=== PATIENT | female | born 1950 | race Caucasian/White ===

== ENCOUNTER → 2016-09-09 | Outpatient (CLI) | payer MEDICARE ==
[~2016-09-09] MED LIST: AMBIEN5 MG PO; DARVOCET N 1001 TAB PO; FLEXERIL5 MG PO; LITHIUM CARBON300 MG PO; VOLTAREN50 M1 PO; ZYPREXA20 MG PO
== END | disposition home or self-care (01) ==
LOC: US 17:39
DX: M48.06 Spinal stenosis, lumbar region (principal); M79.605 Pain in left leg; M79.604 Pain in right leg

== ENCOUNTER 2016-12-04 11:51 | Inpatient (IN) | payer MEDICARE ==
[~2016-12-04] VITALS: Ht 165.1 cm; Wt 75.4 kg
--- NOTE | ~2016-12-04 | DS ---
[place], [place] DISCHARGE SUMMARY NAME: SCOTT MARC UNIT #: [id number] ROOM: 311 DOCTOR: SO MENDOSA BIRTHDATE: [birth year] DOS: 12/15/2016 CHIEF COMPLAINT: "I am going home." HISTORY OF PRESENT ILLNESS: She is a 65-year-old white female who came into the emergency room from home, brought in by her family due to worsening psychosis. She has a longstanding history of schizophrenia and had not been taking her medications appropriately because she believed that it was causing her to have a dry mouth. When she came into the emergency room, she was grossly psychotic, saying that she had microchips in her head and that these microchips were for tracking her and to help her hear what was truly going on. She believed that she was assisting Phil Shabazz to fight the good fight. At home, she became increasingly agitated and combative and so the family brought her into the emergency room for evaluation. SUMMARY OF HOSPITAL COURSE: When she was admitted to the behavioral health unit, she was treated for urinary tract infection. Here on the behavioral health unit, she was started on Exelon and Namenda for dementia, which the doses have been maximized since she has been here. She was started on a new antipsychotic, Invega Sustenna. She got her loading doses with significant improvement in her mood and delusional thinking. PAST MEDICAL HISTORY: She does have schizoaffective disorder and GERD. MENTAL STATUS: She is alert and oriented. Her mood now is euthymic. She has had no episodes of irritability or anger. No episodes of acting out or being aggressive. She is more conversational now. No audio or visual hallucinations have been noted in the past few days. DIAGNOSIS: Schizoaffective disorder. DISPOSITION: She will be discharged home with her next scheduled Invega shot has been ordered and will be scheduled with her physician. Her scripts have been transmitted to her pharmacy and she is discharged in psychiatrically stable condition. [place], [place] DISCHARGE SUMMARY NAME: SCOTT MARC UNIT #: [id number] ROOM: 311 DOCTOR: SO MENDOSA BIRTHDATE: [birth year] So Mendosa, [employer] CM:DISCHARG 5 SO MENDOSA 12/15/16 0956 interface
--- NOTE | ~2016-12-04 | PR ---
[place], [place] PROGRESS NOTE NAME: [facility] #: [id number] UNIT #: [id number] ROOM: 311 DOCTOR: SO MENDOSA BIRTHDATE: [birth year] DOS: 12/12/2016 CHIEF COMPLAINT: "I'm doing real good." SUMMARY OF THE VISIT: Lynn was in her room she had just left the dining room and finished her breakfast. She was med compliant last night, but was complaining of a headache that was treated with Tylenol, which was effective. This morning, she reports that she has a headache, rates it a 5 on a 1-10 scale, but says that it is going away and she does not require any treatment. She has had a decrease in delusions and has had no audio or visual hallucinations. MENTAL STATUS EXAMINATION: She is alert, oriented. Mood and affect are appropriate. PLAN: I renewed her Ativan today as well as increasing her Exelon patch to 9.5 mg a day with a plan to maximize therapy prior to her being discharged. We will continue to try to engage her in individual and steve milieu and discharge her to a least restrictive environment when she is psychiatrically stable. So Mendosa NP CM:LE 3 [id number] SO MENDOSA 12/12/16 4308 interface
--- NOTE | ~2016-12-04 | PR ---
[place], [place] PROGRESS NOTE NAME: SCOTT MARC UNIT #: [id number] ROOM: 311 DOCTOR: YOUNG CARDOSO BIRTHDATE: [birth year] DOS: 12/14/2016 CHIEF COMPLAINT: "Good morning." SUMMARY OF VISIT: The patient was assessed in the dining room where she was waiting at the table for breakfast. Again, she initially engaged in pleasant conversation, answered my questions appropriately. However, when she asked if she could go home today and I said no, most likely tomorrow, she became upset put her head down on the table in her arms and basically pouted and then said what is the difference between today and tomorrow and I tried to explain to her that just is not going to happen. We need time to make sure the medications are working before discharging her. This was not satisfactory to her. MENTAL STATUS: She is alert and oriented to person and place, approximate time. Mood initially pleasant, euthymic but when she did not get away became quite irritable. Affect was inappropriate at times. There has been improvement since the Invega Sustenna injection. She does continue to go off on her tangents but is much more redirectable. PLAN: I am going to go ahead and increase her Exelon and her Namenda with the goal to get the Exelon at the maximum dose of 13.3 mg every day and Namenda dose to be 10 mg every day in total. We will continue to try to engage in individual and steve milieu therapy with the plan to discharge once stable. ROSA ELENA CARDOSO CNP CM:PNTRANS [id number] YOUNG CARDOSO 12/15/16 0035 interface
--- NOTE | ~2016-12-04 | PR ---
[place], [place] PROGRESS NOTE NAME: SCOTT MARC UNIT #: [id number] ROOM: 311 DOCTOR: SO MENDOSA BIRTHDATE: [birth year] DOS: 12/07/2016 ADDENDUM Diagnosis of dementia. So Mendosa NP CM:LE 3 14 SO MENDOSA 12/08/16 2014 interface
--- NOTE | ~2016-12-04 | PR ---
[place], [place] PROGRESS NOTE NAME: SCOTT MARC UNIT #: [id number] ROOM: 311 DOCTOR: SO MENDOSA BIRTHDATE: [birth year] DOS: 12/07/2016 CHIEF COMPLAINT: "I feel good." SUMMARY OF THE VISIT: She was seated in the dining room, very pleasant. She did take my hand when I came over and greeted her. Staff reports that she has been more redirectable since she was started on the evening dose of Vistaril. In the evening, she does very well. In the morning, she does tend to get agitated at times. She is able to calm herself a little better then she will go to her room and calm herself and then come back out into the common area. Her vitamin B12 level was a little low and she did refuse B12 shot yesterday. PLAN: She is willing to take the B12 shot when I explained to her that it had been ordered to her, so I will that back in for today and we will try that again. We added 50 mg dose of Vistaril in the morning to try and help her with the anxiety in the morning and hopefully keep her in a more even state throughout the day. We will continue to try to engage her in individual and steve milieu and discharge her to the least restrictive environment when she is psychiatrically stable. So Mendosa NP CM:PNTRANS [id number] SO MENDOSA 12/07/16 1343 interface
--- NOTE | ~2016-12-04 | PR ---
[place], [place] PROGRESS NOTE NAME: SCOTT MARC UNIT #: [id number] ROOM: 311 DOCTOR: SO MENDOSA BIRTHDATE: [birth year] DOS: 12/10/2016 CHIEF COMPLAINT: "I feel good, I had a good night." SUMMARY OF THE VISIT: She is in the dining room. She is alert, oriented, pleasant conversing with other patients at the table. Her mood and affect are appropriate. She had no further incidents, according to staff overnight, as far as bothering other patients. She has no mag or hypomania. She is not having any audio or visual hallucinations and she is not having any side effects from the medications that she is currently prescribed. PLAN: Increase her Namenda today with the goal to maximize that dosage prior to her being discharged as well as maximizing her Exelon patch. We will continue to engage her in individual and steve milieu, discharging her to the least restrictive environment when she is psychiatrically stable. So Mendosa NP CM:LE [phone] SO MENDOSA 12/10/16 1023 interface
--- NOTE | ~2016-12-04 | WRIGHTHP ---
[place], [place] PATIENT HISTORY AND PHYSICAL EXAM NAME: SCOTT MARC [facility] #: [id number] UNIT #: [id number] ROOM: 311 DOCTOR: JARETT CHRISTENSEN MD BIRTHDATE: [birth year] DOS: 12/05/2016 INITIAL PSYCHIATRIC EVALUATION CHIEF COMPLAINT: "You know why I am here, I am tired of telling you people go to hell." HISTORY OF PRESENT ILLNESS: This is a 65-year-old white female who was brought to the Emergency Room by her family due to worsening psychosis. The patient apparently has a lengthy history of schizophrenia or schizoaffective disorder and has not been taking her Geodon because she feels there is too much salt in it causing her to have a dry mouth. She presented to the Emergency Room grossly psychotic, stating that there are microchips in her head that are tracking her and that these microchips also help her to hear what is truly going on. She was very grandiose and delusional and states that she is helping Phil Shabazz fight a good fight. The patient has been increasingly agitated with family and very combative given the fact that she has had such a significant decline in her mental status, it was felt that inpatient stabilization was warranted. While in the Emergency Room, undergoing screening examination it was found that she did have a UTI and she was given Cipro to start treatment for the UTI. PAST MEDICAL HISTORY: Remarkable for the lengthy history of schizoaffective disorder as well as GERD. MENTAL STATUS: The patient is alert and oriented to person, place, and time. Mood is overwhelmingly labile and very angry. She is very short and terse and confrontational in her speech. She refused to answer many questions, intended to deflect questions with anger. There is a great deal of paranoia present and grandiosity noted. There are no overt auditory hallucinations or visual hallucinations noted. It was tough to totally assess her memory functions because of her lack of cooperation. DIAGNOSIS: Schizoaffective disorder. PLAN: I have already started her on Invega 6 mg in the morning. I will go ahead and order Invega Sustenna 234 mg IM starting on 12/07/2016 to improve compliance and break the psychosis. I will start her also on Remeron because I do see a depressive component in her as well. Remeron will be started at 15 mg at bedtime. We will attempt to engage her in individual and steve milieu activity with the ultimate plan to return to the least restrictive environment when psychiatrically stable. [place], [place] PATIENT HISTORY AND PHYSICAL EXAM NAME: SCOTT MARC UNIT #: [id number] ROOM: [facility] DOCTOR: JARETT CHRISTENSEN MD BIRTHDATE: [birth year] JARETT CHRISTENSEN MD CM:HISPHYS:PATIENT HISTORY AND PHYSICAL EXAMINATION [phone] JARETT CHRISTENSEN MD 12/06/16 0357 interface
--- NOTE | ~2016-12-04 | PR ---
[place], [place] PROGRESS NOTE [id number] UNIT #: [id number] ROOM: 311 DOCTOR: YOUNG CARDOSO BIRTHDATE: [birth year] DOS: 12/13/2016 CHIEF COMPLAINT: "I am not getting out of here today, am I." SUMMARY OF VISIT: The patient was assessed in her room where she was lying in bed, it took a moment to wake her up. She is fully dressed, lying on top of the covers. She is pleasant at first and then she started than on not getting out of here today everybody else is getting discharged, I do not understand, I am just going to give up because I am going to quit asking because I know I am not getting out. I tried to tell her that nobody was being discharged this weekend and she just looked at me and she said whatever. MENTAL STATUS: She is alert and oriented to person, I think place, I do not know about time. Mood irritable. Affect can be inappropriate at times. She is a little bit continues to be delusional and paranoid. Staff notes that she has improved since her first loading dose of the Invega Sustenna but it is still under the surface and she can go off on tangents but redirectable. PLAN: The Exelon was increased yesterday. She did get her initial loading dose of the Invega Sustenna on the and I believe she is scheduled for her next Invega Sustenna injection will need to confirm this. I am going to allow time for the medication to become effective. I did increase her Namenda to b.i.d. and will continue to titrate that up as well. We are seeing some improvements but there are still some underlying paranoia and delusions. So, maybe by the second loading dose, if not, I will augment with something, I will see how she does over the next 24 hours and we can go from there. We will try to engage in individual and steve milieu therapy. Plan to discharge once stable. ROSA ELENA CARDOSO CNP CM:PNTRANS [phone] YOUNG CARDOSO 12/14/16 0400 interface
--- NOTE | ~2016-12-04 | PR ---
[place], [place] PROGRESS NOTE NAME: [id number] UNIT #: [id number] ROOM: 311 DOCTOR: SO MENDOSA BIRTHDATE: [birth year] DOS: 12/06/2016 CHIEF COMPLAINT: "They knocked me out." SUMMARY OF THE VISIT: She was seated in the dining room where she was conversing with another patient, she was laughing, pleasant. She is alert, oriented to self and place, not necessarily to time. She has reported poor sleep and appetite. She also complains of a dry mouth. She did require Ativan p.r.n. 3 times yesterday, the staff reported that she was growling, throwing things, agitated and anxious that she did not sleep for most of the night. PLAN: Reviewed her labs, her vitamin D and her B12 are low. She is on supplements, but with increased dose in order to get her levels within normal. Also added a dose of Vistaril 50 mg at bedtime to try and help decrease her anxiety and help her to get to sleep and we will titrate that as we need to. We will continue to engage her in individual and steve milieu and discharge her to the least restrictive environment when she is psychiatrically stable. So Mendosa NP CM:LE 0835 [id number] SO MENDOSA 12/06/16 1222 interface
--- NOTE | ~2016-12-04 | CON ---
[place], [place] REPORT OF CONSULTATION NAME: SCOTT MARC UNIT #: [id number] ROOM: 311 DOCTOR: DUKE RECINOS ED.D (CONCHITA) BIRTHDATE: [birth year] DOS: 12/08/2016 HISTORY OF PRESENT ILLNESS: The patient is a 65-year-old female referred by Dr. Christensen for competency evaluation. She is here in the hospital for her worsening psychotic features. She had quit taking her Geodon most recently. This patient is and I spoke at length with her . She does live here in [place] with her and does fairly well until she stops taking her medications and then she becomes quite delusional and at that time becomes more psychotic. She was found walking on [facility] here in [place] prior to her admission to the hospital. This patient's family physician is Dr. Irwin and medical history is pertinent for schizoaffective disorder and GERD. CURRENT MEDICATIONS: Include Exelon, vitamin D, hydroxyzine, B12, Remeron, omeprazole, Invega, magnesium hydroxide, and Geodon. PHYSICAL EXAMINATION: This patient was awake, alert and oriented in all three spheres. She denies any suicidal ideation or plan, but is clearly delusional and is having auditory hallucinations. She has followed with Nenita Tamayo, nurse practitioner, at the [facility] here in [place]. The patient has stated multiple delusional thoughts throughout the interview and she is clearly actively psychotic at this time. In my opinion, her should be making her healthcare decisions at this time, but according to him, she does quite well when she is back on her medications. She takes and she does well overall. She decompensates very quickly when she stops taking her medications. The issue became whether or not she needed a guardian or civil commitment and in my opinion, civil commitment will be appropriate at this time due to the fact that she normally does quite well. She does live with her and she has great deal of support from him. DIAGNOSIS: Schizoaffective disorder. RECOMMENDATIONS: I recommend civil commitment versus an emergency guardianship for this patient, so she remain in the hospital and can complete her treatment. Thank you very much for this consult. DUKE RECINOS ED.D CM:CONSTR:REPORT OF CONSULTATION 8 12/09/16 0955 interface JARETT CHRISTENSEN MD
--- NOTE | ~2016-12-04 | PR ---
[place], [place] PROGRESS NOTE NAME: SCOTT MARC UNIT #: [id number] ROOM: 311 DOCTOR: SO MENDOSA BIRTHDATE: [birth year] DOS: 12/09/2016 CHIEF COMPLAINT: "I slept 5 hours." SUMMARY OF THE VISIT: The patient was in the ____ room in a Emmie chair with a tray. When I asked her what was going on, she said to me they said I tried to kill someone. I spoke with the staff and they stated that she had taken a pillow and was going to attempt to put it over the face of another male patient who is here. MENTAL STATUS EXAMINATION: She is alert, confused to place, time. She really makes little of the incident that she had last night, states that it did not happen. Her mood is actually good, but she was little irritated over people saying that she had done this thing trying to harm another patient. Civil commitment papers were filed today by social worker delinquency prevention. PLAN: We will give her a loading dose of Invega Sustenna 234 mg today rather than waiting until the . We will continue to increase and maximize her Exelon patch to treat her Alzheimer dementia. We will engage her in individual and steve milieu and discharge her to the least restrictive environment when she is psychiatrically stable. oS Mendosa NP CM:PNTRANS [phone] SO MENDOSA 12/09/16 1119 interface
--- NOTE | ~2016-12-04 | PR ---
[place], [place] PROGRESS NOTE [id number] UN[facility] #: [id number] ROOM: 311 DOCTOR: JARETT CHRISTENSEN MD BIRTHDATE: [birth year] DOS: 12/08/2016 CHIEF COMPLAINT: "I think I'm doing better." SUMMARY OF THE VISIT: The patient was interviewed in the dining area where she was sitting eating breakfast. Mood does seem to be trending towards euthymia. She is more clear in the sense that she is not as delusional, but she is definitely forgetful and has significant gaps in her memory. She is tolerating the current medication regimen well and did receive her Invega Sustenna loading dose of 234 mg yesterday. I see no extrapyramidal symptoms or tardive dyskinesia. MENTAL STATUS: She is alert and oriented with time gaps. Mood does seem to be trending towards euthymia and affect is more appropriate. The psychotic symptoms seem to be lessening in severity and intensity. Short term memory has gaps and she does have some difficulty in processing. PLAN: I will go ahead and order her secondary loading dose of Invega Sustenna 156 mg on 12/13/2016. I will start her on Exelon patch 4.6 mg daily due to underlying Alzheimer dementia. I will discontinue lithium. She has a significant history of medication noncompliance and rather than risking her being significantly noncompliant with the lithium, I would just as soon discontinue it in lieu of the long-acting decanoate preparation of the Invega. We will continue to engage in individual and steve milieu activity with the ultimate plan to return to the least restrictive environment when psychiatrically stable. JARETT CHRISTENSEN MD CM:PNTRANS [id number] JARETT CHRISTENSEN MD 12/08/16 1733 interface
--- NOTE | ~2016-12-04 | PR ---
[place], [place] PROGRESS NOTE [id number] UN[facility] #: [id number] ROOM: 311 DOCTOR: JARETT CHRISTENSEN MD BIRTHDATE: [birth year] DOS: 12/11/2016 CHIEF COMPLAINT: "I am ready to go home to my fiance today." SUMMARY OF THE VISIT: The patient was initially interviewed first in the dining area as she sat eating her breakfast. She engaged readily in conversation, reporting that she feels that she is ready to go home and does feel like she has improved. Later, I did attend her court hearing on the unit and the patient gave testimony on her belief that she was ready to go home. However, her mood was very evident and she was very angry and irritable at times during the court session. Court ultimately found that she would benefit from further treatment here and has recommended that she stay here longer at this point in time. The patient has received 2 loading doses of Invega Sustenna, which both should be beginning to take their positive effect on her psychosis. She does seem to be trending towards improvement. During my examination of her, I see no extrapyramidal symptoms, tardive dyskinesia or any other side effects. MENTAL STATUS: She is alert and oriented. Mood does seem to be trending towards euthymia, although there is still some irritability, but she does self-redirect. There is no hypomania or mag. There are no overt auditory or visual hallucinations. Memory seems relatively well intact. PLAN: I will order her, her maintenance dose of Invega Sustenna of 156 mg IM on 12/31/2016. We will renew her Ativan p.r.n. in case she requires intervention. We will discuss the case with the treatment team to set up visiting nurses or other support for her when she returns home. JARETT CHRISTENSEN MD CM:PNTRANS 1226 JARETT CHRISTENSEN MD 12/11/16 1224 interface
[2016-12-04 11:59] VITALS: BP 143/63
[2016-12-04 12:36] LABS: BASO # 0.1 10*3/uL (0.0-0.1); BASO % 0.5 % (0.0-1.0); EOS # 0.1 10*3/uL (0.0-0.4); EOS % 0.8 % (1.0-4.0); HEMATOCRIT 44.6 % (37.0-47.0); HEMOGLOBIN 13.9 g/dl (12.0-16.0); LYMPH # 2.1 10*3/uL (1.3-4.4); LYMPH % 20.8 % (27.0-41.0); MEAN CELL VOLUME 84.3 fl (81.0-99.0); MEAN CORPUSCULAR HGB 26.3 pg (27.0-31.0); MEAN CORPUSCULAR HGB CONC 31.2 g/dl (33.0-37.0); MEAN PLATELET VOLUME 10.1 fl (9.6-12.3); MONO # 0.7 10*3/uL (0.1-1.0); MONO % 6.7 % (3.0-9.0); NEUT # 7.2 10*3/uL (2.3-7.9); NEUT % 70.9 % (47.0-73.0); PLATELET COUNT AUTOMATED 337 10*3/uL (130-400); RED BLOOD COUNT 5.29 10*6/uL (4.10-5.10); RED CELL DISTRI WIDTH 15.6 % (0-14.5); WHITE BLOOD COUNT 10.1 10*3/uL (4.8-10.8)
[2016-12-04 12:50] LABS: ALBUMIN 3.8 gm/dl (3.1-4.5); ALKALINE PHOSPHATASE 108 U/L (45-117); BILIRUBIN, TOTAL 0.4 mg/dl (0.2-1.0); BUN 9 mg/dl (7-24); CARBON DIOXIDE 23 mmol/L (21-32); CHLORIDE 109 mmol/L (98-107); EST GLOM FILT AFRICAN AMERICAN > 60 ml/min; GLUCOSE 135 mg/dL (65-99); POTASSIUM 3.7 mmol/L (3.5-5.1); SGOT/AST 17 IU/L (3-35); SGPT/ALT 19 U/L (12-78); SODIUM 145 mmol/L (136-145); TOTAL PROTEIN 7.7 gm/dL (6.4-8.2)
[2016-12-04 12:56] LABS: BILIRUBIN 1+ (NEGATIVE); BLOOD 2+ (NEGATIVE); CLARITY SL CLOUDY (CLEAR); COLOR YELLOW (YELLOW); GLUCOSE NEGATIVE (NEGATIVE); KETONE TRACE (NEGATIVE); LEUKO ESTERASE 2+ (NEGATIVE); NITRITE NEGATIVE (NEGATIVE); PROTEIN NEGATIVE (NEGATIVE)
[2016-12-04 13:05] LABS: URINE AMPHETAMINES < 1000 (1000ng/ml); URINE BARBITURATES < 200 (200ng/ml); URINE COCAINE < 300 (300ng/ml)
[2016-12-04 13:06] LABS: BACTERIA 2+; EPITHELIAL CELLS 16-20; RBC 41-50 rbc/hpf (0-2); URINE REFLEX COMMENT YES (NO)
[2016-12-04 16:34] VITALS: BP 116/70
[2016-12-04 16:40] VITALS: BP 116/70
[2016-12-04] MEDS ORDERED: COLACE100 MG PO (17:13)
[2016-12-04] MEDS ORDERED: GEODON20 MG PO (17:13)
[2016-12-04] MEDS ORDERED: ATIVAN0.5 MG PO (17:14)
[2016-12-04] MEDS ORDERED: PRILOSEC20 M1 PO (17:14)
[2016-12-04] MEDS ORDERED: NEURONTIN800 MG PO (17:14)
[2016-12-04 20:07] VITALS: BP 125/72
[2016-12-05 08:01] VITALS: BP 138/86
[2016-12-05 08:40] LABS: VITAMIN D, 25-HYDROXY 11.3 ng/mL (30-100)
[2016-12-05 08:41] LABS: FOLIC ACID 6.83 ng/mL (>5.38)
[2016-12-05 20:00] VITALS: BP 152/63
[2016-12-05 22:00] VITALS: BP 152/63
[2016-12-06 08:01] VITALS: BP 122/61
[2016-12-06 20:00] VITALS: BP 135/79
[2016-12-06 20:28] VITALS: BP 135/79
[2016-12-07 07:56] VITALS: BP 133/88
[2016-12-07 20:00] VITALS: BP 145/64
[2016-12-08 09:06] VITALS: BP 118/55
[2016-12-08 20:00] VITALS: BP 122/74
[2016-12-08 21:30] VITALS: BP 122/74
[2016-12-09 08:00] VITALS: BP 130/76
[2016-12-09 20:00] VITALS: BP 131/68
[2016-12-09 20:10] VITALS: BP 131/68
[2016-12-10 08:00] VITALS: BP 131/84
[2016-12-10 19:52] VITALS: BP 126/72
[2016-12-11 07:36] VITALS: BP 126/72
[2016-12-11 20:03] VITALS: BP 125/64
[2016-12-12 06:55] VITALS: BP 124/71
[2016-12-12 20:31] VITALS: BP 119/65; BP 125/64
[2016-12-13 07:33] VITALS: BP 134/83
[2016-12-13 20:02] VITALS: BP 130/74
[2016-12-14 08:05] VITALS: BP 147/85
[2016-12-14 20:29] VITALS: BP 105/67
[2016-12-15] MEDS ORDERED: INVEGA SUSTENN156 MG IM (07:44)
[2016-12-15] MEDS ORDERED: EXELON13.3 MG/21 T (07:44)
[2016-12-15] MEDS ORDERED: MIRTAZAPINE15 M2 PO (07:44)
[2016-12-15] MEDS ORDERED: VITAMIN D50000 I3 PO (07:44)
[2016-12-15] MEDS ORDERED: ATARAX,VISTARIL50 MG PO (07:44)
[2016-12-15] MEDS ORDERED: HYDROXYZINE PAM25 M1 PO (07:44)
[2016-12-15] MEDS ORDERED: NAMENDA-5 PO (07:44)
[2016-12-15] MEDS ORDERED: B12,B-12,B 12500 MC1 PO (07:44)
[2016-12-15 08:07] VITALS: BP 126/64
[2016-12-15 19:41] VITALS: BP 120/80
[2016-12-16 08:00] VITALS: BP 116/75
[2016-12-16 20:13] VITALS: BP 109/71
[2016-12-17 07:30] VITALS: BP 137/75
[2016-12-17 19:51] VITALS: BP 122/52
[2016-12-18 07:48] VITALS: BP 128/74
[2016-12-18 08:25] LABS: BILIRUBIN NEGATIVE (NEGATIVE); BLOOD 2+ (NEGATIVE); CLARITY SL CLOUDY (CLEAR); COLOR YELLOW (YELLOW); GLUCOSE NEGATIVE (NEGATIVE); KETONE NEGATIVE (NEGATIVE); LEUKO ESTERASE 2+ (NEGATIVE); NITRITE NEGATIVE (NEGATIVE); PROTEIN NEGATIVE (NEGATIVE); SPECIFIC GRAVITY <= 1.005 (1.005-1.030); UROBILINOGEN 0.2 E.U./dl (0.2-1.0)
[2016-12-18 08:49] LABS: URINE REFLEX COMMENT YES (NO)
[2016-12-18 08:51] LABS: BACTERIA 1+
[2016-12-18 19:50] VITALS: BP 129/64
[2016-12-19 06:41] VITALS: BP 132/79
[2016-12-19 20:00] VITALS: BP 131/77
[2016-12-19 20:44] VITALS: BP 131/77
[2016-12-20 08:17] VITALS: BP 116/84
[2016-12-20 21:49] VITALS: BP 138/76
[2016-12-21 08:00] VITALS: BP 132/64
[2016-12-21 20:02] VITALS: BP 134/84
[2016-12-22 07:58] VITALS: BP 143/75
[2016-12-22 19:57] VITALS: BP 124/70
[2016-12-22 20:19] VITALS: BP 124/70
[2016-12-23 07:46] VITALS: BP 127/78
[2016-12-23 19:56] VITALS: BP 140/80
[2016-12-24 08:04] VITALS: BP 130/81
[2016-12-24] MEDS ORDERED: LORAZEPAM1 MG PO (08:18)
[2016-12-24] MEDS ORDERED: RISPERIDONE M-TA1 MG BC (08:18)
== END 2016-12-24 14:54 | disposition home or self-care (01) | DRG 885 ==
LOC: ED 11:51 → 3N 16:16
PROVIDERS: Physician Assistant; Psychiatry & Neurology Psychiatry
DX: F23 Brief psychotic disorder (principal); F02.81 Dementia in other diseases classified elsewhere, unspecified severity, with behavioral disturbance; N39.0 Urinary tract infection, site not specified; K21.9 Gastro-esophageal reflux disease without esophagitis; E53.8 Deficiency of other specified B group vitamins; E55.9 Vitamin D deficiency, unspecified; R73.9 Hyperglycemia, unspecified; F41.9 Anxiety disorder, unspecified; Z98.51 Tubal ligation status; Z72.89 Other problems related to lifestyle; Z87.891 Personal history of nicotine dependence; Z81.1 Family history of alcohol abuse and dependence; Z79.899 Other long term (current) drug therapy

== ENCOUNTER 2017-01-07 14:04 | Inpatient (IN) | payer MEDICARE ==
[~2017-01-07] VITALS: Ht 165.1 cm; Wt 75.4 kg
--- NOTE | ~2017-01-07 | CON ---
[place], [place] REPORT OF CONSULTATION NAME: SCOTT MARC [facility] #: [id number] UNIT #: [id number] ROOM: 312 DOCTOR: DUKE RECINOS ED.D (CONCHITA) BIRTHDATE: [birth year] DOS: HISTORY OF PRESENT ILLNESS: The patient is a 66-year-old female referred for competency evaluation. At the present time, she is on the [facility] here at [facility]. This patient is and presently resides here in [place]. She was extremely delusional and was found walking on [facility] here in [place]. Her family physician is Dr. Irwin. Her medical history is pertinent for schizoaffective disorder and GERD. Her medications include Vistaril, trazodone, vitamin B, Exelon, B12, Namenda and Invega. She does follow with Neinta Tamayo at the counseling center. Ms. Tamayo is a nurse practitioner. She is planning on following with Dr. Catherine at the [facility] once she is discharged. Unfortunately, this patient closely decompensates when she is discharged from the hospital. We did have a civil commitment hearing and she was committed in the hospital and she is closed to being ready for discharge. However, she will quickly decompensate because she does not take her medications. I recommend a guardianship for this patient, so she can have someone who helps to supervise her treatment. She recently was at [facility] in [place], [place], but she left quickly decompensated and then was readmitted to the hospital. DIAGNOSIS: Schizoaffective disorder. RECOMMENDATIONS: In my opinion, a guardian should be appointed for this patient and I did complete the appropriate paperwork. Thank you very much for this consult. DUKE RECINOS ED.D CM:CONSTR:REPORT OF CONSULTATION 1032 01/16/17 2226 interface
--- NOTE | ~2017-01-07 | DS ---
[place], [place] DISCHARGE SUMMARY NAME: SCTOT MARC UNIT #: [id number] ROOM: 312 DOCTOR: SO MENDOSA BIRTHDATE: [birth year] DOS: 01/20/2017 CHIEF COMPLAINT: "I'm ready to go home." HISTORY OF PRESENT ILLNESS: She is a 66-year-old female brought to the ER with complaints of agitation. She was brought by her . She does have a longstanding history of schizophrenia and has frequently been admitted to the behavioral health unit due to not taking her medications properly and then decompensating. At home, she had been bumping into things, agitated, shouting random thoughts for the past 2 weeks. Her reported to the Emergency Room that she was on all new meds. PAST MEDICAL HISTORY: She has a history of schizophrenia, tachycardia and GERD. SUMMARY OF HOSPITAL COURSE: She was given another loading dose of Invega Sustenna 156 mg. Her next dose will be due on 03 February. She was also started on trazodone due to complaints of not being able to sleep at home and that trazodone dosage was increased up to 300 mg at bedtime, in order to help her sleep and also to break the mag. She was started on Vistaril for anxiety and will be discharged on the Vistaril 25 mg twice a day and then 50 mg at bedtime. MENTAL STATUS AT DISCHARGE: She is euthymic. She is alert and oriented x 3. Mood and affect are appropriate. She is really looking forward to going home. She has voiced no hallucinations, delusions or paranoia. She has no EPS or TD. DISPOSITION: She is to be discharged today for a 30-day stay in order to get her more regulated on her medications and get them in her system, at least long enough for her to have her next dose of Invega Sustenna. Her scripts have been printed and will be sent to the facility or to home if that is what the final decision is. [place], [place] DISCHARGE SUMMARY NAME: SCOTT MARC UNIT #: [id number] ROOM: 312 DOCTOR: SO MENDOSA BIRTHDATE: [birth year] So Mendosa NP CM:DISCHSUNIL [id number] SO MENDOSA 01/20/17 1404 interface
--- NOTE | ~2017-01-07 | PR ---
[place], [place] PROGRESS NOTE [id number] UNIT #: [id number] ROOM: 312 DOCTOR: AUSTEN ROSA MD BIRTHDATE: [birth year] DOS: 01/18/2017 SUBJECTIVE: The patient has been admitted to hospital with acute psychosis and is slowly improving, but medically she is stable. She denies any chest pain, no difficulty breathing, no nausea, no vomiting, no GI or symptoms. She is active and ambulating well without any problem and chest is clear. Heart is regular. Abdomen is soft. No swelling of the legs. OBJECTIVE: VITAL SIGNS: Blood pressure 136/84, pulse 79, respirations 18, temperature 98. CHEST: Clear. HEART: Regular. ABDOMEN: Soft. She is medically stable. AUSTEN ROSA MD CM:PNTRANS 0713 [id number] AUSTEN ROSA MD 01/18/17 1111 interface
--- NOTE | ~2017-01-07 | PR ---
[place], [place] PROGRESS NOTE [id number] UNIT #: [id number] ROOM: 312 DOCTOR: AUSTEN ROSA MD BIRTHDATE: [birth year] DOS: SUBJECTIVE: The patient has been admitted to the psych unit with acute psychosis and she also is having urinary tract infection and she is being treated with the appropriate antibiotic. She denies any fever and chills. She denies any pain in her abdomen. No nausea, no vomiting, Her comprehensive metabolic profile shows chloride 109, slightly higher calcium slightly lower, other values are fairly normal. CBC is showing slight hypochromic anemia, otherwise normal. OBJECTIVE: VITAL SIGNS: Her blood pressure is 115/58, pulse 95, respirations 20, temperature 97.8. AUSTEN ROSA MD CM:PNTRANS 1 0811 AUSTEN ROSA MD 01/11/17 2141 interface
--- NOTE | ~2017-01-07 | PR ---
[place], [place] PROGRESS NOTE NAME: SCOTT MARC UNIT #: [id number] ROOM: 312 DOCTOR: JARETT CHRISTENSEN MD BIRTHDATE: [birth year] DOS: 01/10/2017 CHIEF COMPLAINT: "I want to go home; I will do whatever I need to be able to go home." SUMMARY OF THE VISIT: The patient was interviewed as she rested quietly in bed. She engaged readily in conversation. She did state that she is feeling better and she was much more goal directed in her thinking. There was much less mood lability and agitation. When I discussed with her the need for her to follow all the rules, be compliant with medications, she nodded in agreement and stated she would do whatever she needed to do so that she would be able to go home with her . I discussed with her at length whether this is the route she wants to go because in the past she had made negative comments regarding him and their relationship, but this morning she states that vehemently that she wants to return home with him. MENTAL STATUS: She is alert and oriented to person, place and time. Mood does seem to be fairly euthymic. Affect is much more appropriate. She is much more redirectable in her thinking. There are no symptoms of hypomania or mag. There are no overt auditory or visual hallucinations. No delusions were voiced this morning. Memory seems relatively intact. PLAN: I will go ahead and schedule her next Invega Sustenna injection of 156 mg IM on 02/04/2016. We will continue to monitor and support, engage in individual and steve milieu activity with the plan then to discharge when psychiatrically stable. JARETT CHRISTENSEN MD CM:PNTRANS 0836 1003 JARETT CHRISTENSEN MD 01/10/17 1003 interface
--- NOTE | ~2017-01-07 | PR ---
[place], [place] PROGRESS NOTE NAME: SCOTT MARC UNIT #: [id number] ROOM: 312 DOCTOR: JARETT CHRISTENSEN MD BIRTHDATE: [birth year] DOS: 01/15/2017 INTERVAL NOTE CHIEF COMPLAINT: "I want to go home." SUMMARY OF THE VISIT: The patient was interviewed first alone and then later with her family after the court hearing. During the process of the court hearing, the patient did agree to involuntary sign in and so she can get help. Family expressed in front of her a desire for her to go into a 30-day rehab, so that she can remain compliant with her medicine longer and be well, so we stop revolving door. The patient continues to be somewhat psychotic and delusional, but does seem to be trending gradually toward improvement. Overall, she is much more redirectable and sleep and appetite seems to have normalized. She is tolerating the current medication regimen well and I see no tardive dyskinesia, extrapyramidal symptoms, or other side effects. MENTAL STATUS: She is alert and oriented with some time gaps. Mood does seem to be trending towards euthymia. Affect is more appropriate. Her overall level of psychosis seems to be diminishing, but is still present. Memory has some gaps. PLAN: I will maintain her current psychotropic regimen. Continue to engage in individual and steve milieu activity. I will put a consult in to Dr. Pierre Beverly, psychologist, to determine if he believes that she would benefit from a lengthy 30-day rehab stay so she can remain compliant with her medication. Family has also been notified that they should proceed with guardianship so that they may make more rational decisions for her in the future eliminating the need for the probate process. We will engage in individual and steve milieu activity, discharging then when psychiatrically stable. JARETT CHRISTENSEN MD CM:PNTRANS 0 7 JARETT CHRISTENSEN MD 01/15/17847 interface
--- NOTE | ~2017-01-07 | PR ---
[place], [place] PROGRESS NOTE NAME: SCOTT MARC [facility] #: [id number] UNIT #: [id number] ROOM: 312 DOCTOR: AUSTEN ROSA MD BIRTHDATE: [birth year] DOS: SUBJECTIVE: The patient has been admitted to the psych unit with acute psychosis. The patient's comprehensive profile was normal. Her urine showed urinary tract infection with some sepsis. The patient had history of schizophrenia, bipolar disorder, subclinical hypothyroidism, tachypnea, tachycardia, GERD syndrome, B12 deficiency, vitamin D deficiency. Her RPR is nonreactive. Her ____ urine culture and sensitivity showed heavy growth of Gram-negative bacteria which is sensitive to penicillin. The patient is getting amoxicillin. Comprehensive metabolic profile showed glucose 100, chloride 109. SGOT 42, other values are normal. OBJECTIVE: VITAL SIGNS: Blood pressure 110/74, pulse 95, respirations 18, temperature 98.9. CHEST: Clear. HEART: Regular. ABDOMEN: Soft. AUSTEN ROSA MD CM:PNTRANS 0719 0944 AUSTEN ROSA MD 01/11/17 0144 interface
--- NOTE | ~2017-01-07 | DS ---
[place], [place] DISCHARGE SUMMARY NAME: SCOTT MRAC UNIT #: [id number] ROOM: 312 DOCTOR: SO MENDOSA BIRTHDATE: [birth year] DOS: 01/21/2017 ADDENDUM Her discharge was held up by insurance and paperwork. She will be discharging on 01/21/2017. She was discharged in psychiatrically stable condition. Her scripts will be sent with her to the facility. She is discharging to , which [facility]. She had a great night last night. She is alert and oriented. No AV hallucinations. No EPS or TD. So Mendosa NP CM:DISCHARG 0825 0903 SO MENDOSA 01/21/17 1055 interface
--- NOTE | ~2017-01-07 | PR ---
[place], [place] PROGRESS NOTE [id number] UNIT #: [id number] ROOM: 312 DOCTOR: JARETT CHRISTENSEN MD BIRTHDATE: [birth year] DOS: 01/19/2017 INTERVAL NOTE CHIEF COMPLAINT: "I am feeling so much better." SUMMARY OF THE VISIT: The patient was interviewed as she sat in the dining area waiting for breakfast. She smiled upon approach. She even attempted to give me a hug, but then settled for me shaking her hand. She reports that she is feeling better and feels that the current medications are working. She engaged readily in conversation answering each of my questions appropriately. She convincingly denies any medication side effects. She reports improved sleep and appetite and voices positive plans for the future. MENTAL STATUS: She is alert and oriented to person, place and very approximate to time. Mood is strongly trending towards euthymia. Affect is much more appropriate. There are no symptoms of mag or hypomania. There are no overt auditory or visual hallucinations. Short, intermediate and assisted memory are relatively grossly intact. PLAN: I will maintain her current psychotropic regimen. We will finalize discharge plans and we will discharge to the least restrictive environment when psychiatrically stable. JARETT CHRISTENSEN MD CM:PNTRANS 2 1 JARETT CHRISTENSEN MD 01/19/17911 interface
--- NOTE | ~2017-01-07 | PR ---
[place], [place] PROGRESS NOTE NAME: SCOTT MARC [facility] #: [id number] UNIT #: [id number] ROOM: 312 DOCTOR: AUSTEN ROSA MD BIRTHDATE: [birth year] DOS: SUBJECTIVE: The patient has been admitted to hospital on the psych floor with schizophrenia and acute psychosis and the patient is feeling fairly good medically. She is not in any distress, no chest pain, no difficulty breathing, no nausea, no vomiting and the patient is eating well. She is very cooperative with staff. They say medically, the patient is fit, but she still needs treatment for her schizophrenia and psychotic behavior and patient has urine culture and sensitivity done, which showed Klebsiella pneumoniae. The patient is to the antibiotic and the patient is being treated for that. OBJECTIVE: VITAL SIGNS: Her blood pressure 108/57, pulse 79, respirations , temperature 98. CHEST: Clear. HEART: Regular. ABDOMEN: Soft. AUSTEN ROSA MD CM:PNTRANS 1049 1238 AUSTEN ROSA MD 01/17/17 1238 interface
--- NOTE | ~2017-01-07 | PR ---
[place], [place] PROGRESS NOTE NAME: SCOTT MARC UNIT #: [id number] ROOM: 312 DOCTOR: JARETT CHRISTENSEN MD BIRTHDATE: [birth year] DOS: 01/11/2017 CHIEF COMPLAINT: "Happy doctor, I am fine, how are you?" SUMMARY OF THE VISIT: The patient was interviewed as she sat in the dining area, watching television. She was by herself and she readily engaged in conversation, smiling brightly. She tended to minimize issues, stating that she is feeling better and is hoping to go home with her tomorrow. Nurses report she had a very bad evening, however, last night and woke up in the middle of the night and was up then throughout the entire night, running up and down the halls, shouting at the top of her lungs, Happy . She even banged on some of the other residents doors, disrupting their sleep. She does seem to be tolerating the current medication regimen well and I will continue to monitor this behavior. MENTAL STATUS EXAMINATION: This morning, she is alert and oriented with some time gaps. Mood does seem to be still labile. Affect is inappropriate. There are no symptoms of mag or hypomania noted at this time, although she is very much hiding her symptomatology from me. Short term memory has some gaps, otherwise she is intact. PLAN: I will go ahead and start her on trazodone 150 mg at bedtime, just to help per sleep through the night and break the mag that seems to be present. I will go ahead and engage her in individual and steve milieu activity with the ultimate plan to return to the least restrictive environment when psychiatrically stable. JRAETT CHIRSTENSEN MD CM:PNTRANS 09 1027 JARETT CHRISTENSEN MD 01/11/17 1027 interface
[~2017-01-07 14:04] MED LIST changes: +ATARAX,VISTARIL50 MG PO; +ATIVAN0.5 MG PO; +B12,B-12,B 12500 MC1 PO; +COLACE100 MG PO; +EXELON13.3 MG/21 T; +GEODON20 MG PO; +HYDROXYZINE PAM25 M1 PO; +INVEGA SUSTENN156 MG IM; +LORAZEPAM1 MG PO; +MIRTAZAPINE15 M2 PO; +NAMENDA-5 PO; +NEURONTIN800 MG PO; +PRILOSEC20 M1 PO; +RISPERIDONE M-TA1 MG BC; +VITAMIN D50000 I3 PO
[2017-01-07 14:17] VITALS: BP 150/98
[2017-01-07] MEDS ORDERED: MIRTAZAPINE15 M2 PO (14:18)
[2017-01-07] MEDS ORDERED: KLONOPIN0.5 MG PO (14:19)
[2017-01-07] MEDS ORDERED: QUETIAPINE FUM100 M2 PO (14:19)
[2017-01-07] MEDS ORDERED: NAMENDA10 MG PO (14:19)
[2017-01-07] MEDS ORDERED: RESTORIL15 MG PO (14:19)
[2017-01-07] MEDS ORDERED: QUETIAPINE FUM100 M3 PO (14:20)
[2017-01-07] MEDS ORDERED: VITAMIN B1250 MCG PO (14:20)
[2017-01-07 14:48] LABS: BASO # 0.1 10*3/uL (0.0-0.1); BASO % 0.5 % (0.0-1.0); EOS # 0.1 10*3/uL (0.0-0.4); EOS % 0.8 % (1.0-4.0); HEMATOCRIT 41.1 % (37.0-47.0); HEMOGLOBIN 12.8 g/dl (12.0-16.0); LYMPH # 1.9 10*3/uL (1.3-4.4); LYMPH % 17.5 % (27.0-41.0); MEAN CELL VOLUME 81.1 fl (81.0-99.0); MEAN CORPUSCULAR HGB 25.2 pg (27.0-31.0); MEAN CORPUSCULAR HGB CONC 31.1 g/dl (33.0-37.0); MONO # 0.9 10*3/uL (0.1-1.0); MONO % 7.7 % (3.0-9.0); NEUT # 8.1 10*3/uL (2.3-7.9); NEUT % 73.2 % (47.0-73.0); PLATELET COUNT AUTOMATED 355 10*3/uL (130-400); RED BLOOD COUNT 5.07 10*6/uL (4.10-5.10); RED CELL DISTRI WIDTH 15.1 % (0-14.5); WHITE BLOOD COUNT 11.1 10*3/uL (4.8-10.8)
[2017-01-07 15:03] LABS: ALBUMIN 3.5 gm/dl (3.1-4.5); ALKALINE PHOSPHATASE 119 U/L (45-117); BILIRUBIN, TOTAL 0.3 mg/dl (0.2-1.0); BUN 8 mg/dl (7-24); CARBON DIOXIDE 20 mmol/L (21-32); CHLORIDE 111 mmol/L (98-107); EST GLOM FILT AFRICAN AMERICAN > 60 ml/min; GLUCOSE 123 mg/dL (65-99); POTASSIUM 3.8 mmol/L (3.5-5.1); SGOT/AST 41 IU/L (3-35); SGPT/ALT 39 U/L (12-78); SODIUM 141 mmol/L (136-145); TOTAL PROTEIN 7.6 gm/dL (6.4-8.2)
[2017-01-07 15:03] LABS: BILIRUBIN NEGATIVE (NEGATIVE); BLOOD 2+ (NEGATIVE); CLARITY SL CLOUDY (CLEAR); COLOR YELLOW (YELLOW); GLUCOSE NEGATIVE (NEGATIVE); KETONE NEGATIVE (NEGATIVE); LEUKO ESTERASE 1+ (NEGATIVE); NITRITE NEGATIVE (NEGATIVE); PROTEIN NEGATIVE (NEGATIVE); SPECIFIC GRAVITY 1.025 (1.005-1.030); UROBILINOGEN 0.2 E.U./dl (0.2-1.0)
[2017-01-07 15:09] LABS: BACTERIA 1+; RBC 31-40 rbc/hpf (0-2); URINE REFLEX COMMENT YES (NO)
[2017-01-07 15:10] LABS: URINE AMPHETAMINES < 1000 (1000ng/ml); URINE BARBITURATES < 200 (200ng/ml); URINE COCAINE < 300 (300ng/ml)
[2017-01-07] MEDS ORDERED: CLONAZEPAM0.5 M2 PO (17:19)
[2017-01-07] MEDS ORDERED: TEMAZEPAM15 M1 PO (17:19)
[2017-01-07] MEDS ORDERED: VITAMIN D50000 UNIT PO (17:25)
[2017-01-07] MEDS ORDERED: VISTARIL50 MG PO (17:46)
[2017-01-07] MEDS ORDERED: RIVASTIGMINE TAR6 M1 PO (17:48)
[2017-01-07 18:22] VITALS: BP 122/85
[2017-01-07 20:04] VITALS: BP 117/90
[2017-01-08 07:55] LABS: BASO # 0.1 10*3/uL (0.0-0.1); BASO % 0.4 % (0.0-1.0); EOS # 0.1 10*3/uL (0.0-0.4); EOS % 0.7 % (1.0-4.0); HEMATOCRIT 41.2 % (37.0-47.0); HEMOGLOBIN 12.7 g/dl (12.0-16.0); IG # 0.1 10*3/uL (0.0-0.1); LYMPH # 3.1 10*3/uL (1.3-4.4); MEAN CELL VOLUME 81.6 fl (81.0-99.0); MEAN CORPUSCULAR HGB 25.1 pg (27.0-31.0); MEAN CORPUSCULAR HGB CONC 30.8 g/dl (33.0-37.0); MEAN PLATELET VOLUME 10.2 fl (9.6-12.3); MONO # 0.8 10*3/uL (0.1-1.0); MONO % 6.6 % (3.0-9.0); NEUT # 7.5 10*3/uL (2.3-7.9); NEUT % 64.8 % (47.0-73.0); PLATELET COUNT AUTOMATED 379 10*3/uL (130-400); RED BLOOD COUNT 5.05 10*6/uL (4.10-5.10); RED CELL DISTRI WIDTH 15.3 % (0-14.5); WHITE BLOOD COUNT 11.6 10*3/uL (4.8-10.8)
[2017-01-08 08:00] VITALS: BP 116/81
[2017-01-08 08:22] LABS: ALBUMIN 3.5 gm/dl (3.1-4.5); ALKALINE PHOSPHATASE 124 U/L (45-117); BILIRUBIN, TOTAL 0.4 mg/dl (0.2-1.0); BUN 10 mg/dl (7-24); CARBON DIOXIDE 23 mmol/L (21-32); CHLORIDE 107 mmol/L (98-107); EST GLOM FILT AFRICAN AMERICAN > 60 ml/min; GLUCOSE 106 mg/dL (65-99); POTASSIUM 3.9 mmol/L (3.5-5.1); SGOT/AST 48 IU/L (3-35); SGPT/ALT 45 U/L (12-78); SODIUM 141 mmol/L (136-145); TOTAL PROTEIN 7.8 gm/dL (6.4-8.2)
[2017-01-08 08:24] LABS: HEMOGLOBIN A1c 6.4 % (4.8-5.6)
[2017-01-08 08:58] LABS: FOLIC ACID 10.17 ng/mL (>5.38); VITAMIN D, 25-HYDROXY 41.8 ng/mL (30-100)
[2017-01-08 19:45] VITALS: BP 118/78
[2017-01-09 06:10] LABS: ALBUMIN 3.2 gm/dl (3.1-4.5); ALKALINE PHOSPHATASE 96 U/L (45-117); BILIRUBIN, TOTAL 0.3 mg/dl (0.2-1.0); BUN 13 mg/dl (7-24); CARBON DIOXIDE 24 mmol/L (21-32); CHLORIDE 109 mmol/L (98-107); EST GLOM FILT AFRICAN AMERICAN > 60 ml/min; GLUCOSE 100 mg/dL (65-99); POTASSIUM 3.7 mmol/L (3.5-5.1); SGOT/AST 42 IU/L (3-35); SGPT/ALT 40 U/L (12-78); SODIUM 142 mmol/L (136-145); TOTAL PROTEIN 6.8 gm/dL (6.4-8.2)
[2017-01-09 08:10] VITALS: BP 127/67
[2017-01-09 20:00] VITALS: BP 110/74
[2017-01-10 07:25] LABS: BASO # 0.1 10*3/uL (0.0-0.1); BASO % 0.7 % (0.0-1.0); EOS # 0.2 10*3/uL (0.0-0.4); EOS % 1.9 % (1.0-4.0); HEMATOCRIT 38.6 % (37.0-47.0); HEMOGLOBIN 12.1 g/dl (12.0-16.0); LYMPH # 2.5 10*3/uL (1.3-4.4); LYMPH % 27.1 % (27.0-41.0); MEAN CELL VOLUME 82.1 fl (81.0-99.0); MEAN CORPUSCULAR HGB 25.7 pg (27.0-31.0); MEAN CORPUSCULAR HGB CONC 31.3 g/dl (33.0-37.0); MEAN PLATELET VOLUME 9.8 fl (9.6-12.3); MONO # 0.7 10*3/uL (0.1-1.0); MONO % 7.5 % (3.0-9.0); NEUT # 5.7 10*3/uL (2.3-7.9); NEUT % 62.6 % (47.0-73.0); PLATELET COUNT AUTOMATED 319 10*3/uL (130-400); RED CELL DISTRI WIDTH 15.2 % (0-14.5); WHITE BLOOD COUNT 9.1 10*3/uL (4.8-10.8)
[2017-01-10 07:46] VITALS: BP 115/79
[2017-01-10 07:54] LABS: ALBUMIN 3.2 gm/dl (3.1-4.5); ALKALINE PHOSPHATASE 102 U/L (45-117); BILIRUBIN, TOTAL 0.4 mg/dl (0.2-1.0); BUN 9 mg/dl (7-24); CARBON DIOXIDE 25 mmol/L (21-32); CHLORIDE 109 mmol/L (98-107); EST GLOM FILT AFRICAN AMERICAN > 60 ml/min; GLUCOSE 98 mg/dL (65-99); POTASSIUM 3.9 mmol/L (3.5-5.1); SGOT/AST 34 IU/L (3-35); SGPT/ALT 37 U/L (12-78); SODIUM 141 mmol/L (136-145); TOTAL PROTEIN 7.1 gm/dL (6.4-8.2)
[2017-01-10 19:49] VITALS: BP 115/58
[2017-01-11 07:46] VITALS: BP 127/71
[2017-01-11 20:11] VITALS: BP 125/92
[2017-01-12 08:09] VITALS: BP 125/78
[2017-01-12 18:32] LABS: BILIRUBIN NEGATIVE (NEGATIVE); BLOOD 1+ (NEGATIVE); CLARITY CLEAR (CLEAR); COLOR YELLOW (YELLOW); GLUCOSE NEGATIVE (NEGATIVE); KETONE NEGATIVE (NEGATIVE); LEUKO ESTERASE NEGATIVE (NEGATIVE); NITRITE NEGATIVE (NEGATIVE); PH 6.5 (5.0-9.0); PROTEIN NEGATIVE (NEGATIVE); SPECIFIC GRAVITY <= 1.005 (1.005-1.030); UROBILINOGEN 0.2 E.U./dl (0.2-1.0)
[2017-01-12 18:39] LABS: BACTERIA 1+; URINE REFLEX COMMENT YES (NO); WBC 0-2 wbc/hpf (0-5)
[2017-01-12 20:00] VITALS: BP 115/69
[2017-01-13 08:07] VITALS: BP 121/61
[2017-01-13 20:18] VITALS: BP 119/60
[2017-01-14 08:00] VITALS: BP 110/72
[2017-01-14 20:18] VITALS: BP 113/56
[2017-01-15 07:55] VITALS: BP 110/89
[2017-01-15 20:00] VITALS: BP 120/60
[2017-01-15 20:20] VITALS: BP 120/860
[2017-01-16 08:12] VITALS: BP 127/68
[2017-01-16 20:00] VITALS: BP 105/58
[2017-01-16 20:11] VITALS: BP 105/58
[2017-01-17 08:01] VITALS: BP 108/57
[2017-01-17 20:08] VITALS: BP 136/84
[2017-01-18 08:52] VITALS: BP 112/76
[2017-01-18 20:00] VITALS: BP 111/68
[2017-01-19 07:50] VITALS: BP 104/57
[2017-01-19 19:52] VITALS: BP 111/68
[2017-01-19 21:11] VITALS: BP 117/63
[2017-01-20 07:41] VITALS: BP 112/56
[2017-01-20] MEDS ORDERED: TRAZODONE150 MG PO (08:49)
[2017-01-20] MEDS ORDERED: RIVASTIGMINE TAR3 M1 PO (08:49)
[2017-01-20] MEDS ORDERED: ATARAX,VISTARIL50 MG PO (08:49)
[2017-01-20] MEDS ORDERED: BENZTROPINE MESY1 MG PO (08:49)
[2017-01-20] MEDS ORDERED: INVEGA SUSTENN156 MG IM (08:49)
[2017-01-20] MEDS ORDERED: VITAMIN D50000 I3 PO (08:49)
[2017-01-20] MEDS ORDERED: MEMANTINE HCL10 MG PO (08:49)
[2017-01-20] MEDS ORDERED: B12,B-12,B 12500 MC1 PO (08:49)
[2017-01-20 19:59] VITALS: BP 112/84
[2017-01-21 07:48] VITALS: BP 117/64
[2017-01-21] MEDS ORDERED: HYDROXYZINE PAM25 M1 PO (08:28)
== END 2017-01-21 13:15 | DRG 885 ==
LOC: ED 14:04 → 3N 16:34
PROVIDERS: Internal Medicine; Psychiatry & Neurology Psychiatry; Student in an Organized Health Care Education/Training Program
DX: F25.9 Schizoaffective disorder, unspecified (principal); A41.9 Sepsis, unspecified organism; F23 Brief psychotic disorder; R74.0 Nonspecific elevation of levels of transaminase and lactic acid dehydrogenase [LDH]; N39.0 Urinary tract infection, site not specified; F31.9 Bipolar disorder, unspecified; R25.8 Other abnormal involuntary movements; K21.9 Gastro-esophageal reflux disease without esophagitis; E02 Subclinical iodine-deficiency hypothyroidism; R73.03 Prediabetes; R73.9 Hyperglycemia, unspecified; E55.9 Vitamin D deficiency, unspecified; E53.8 Deficiency of other specified B group vitamins; Z87.440 Personal history of urinary (tract) infections; Z98.51 Tubal ligation status; Z72.89 Other problems related to lifestyle; Z87.891 Personal history of nicotine dependence; Z81.1 Family history of alcohol abuse and dependence; Z79.899 Other long term (current) drug therapy

== ENCOUNTER 2017-02-10 11:24 | Inpatient (IN) | payer MEDICARE ==
[~2017-02-10] VITALS: Ht 165.1 cm; Wt 80.3 kg
--- NOTE | ~2017-02-10 | DS ---
[place], [place] DISCHARGE SUMMARY NAME: SCOTT MARC [facility] #: [id number] UNIT #: [id number] ROOM: 314 DOCTOR: SO MENDOSA BIRTHDATE: [birth year] DOS: 02/19/2017 CHIEF COMPLAINT: "Am I going home today, can I please go home." HISTORY OF PRESENT ILLNESS: She is a 66-year-old female who is very well known to us on the Behavioral Health Unit due to multiple psych admissions. She lives at home with her . He brought her in because she was behaving radically. She was not taking care of herself and not sleeping. According to the patient, she had a fall and her gave her some pills after the fall, then brought her to the Emergency Room. PAST MEDICAL HISTORY: Acute psychosis, vitamin B12 deficiency, bipolar disorder. She has had several hospital admissions with brief psychotic disorder, diabetes, dystonic movements, GERD, schizophrenia and vitamin D deficiency. SUMMARY OF HOSPITAL COURSE: She was admitted to the Behavioral Health Unit in order to have her medications regulated. On admission, she was restarted on lithium and her Invega Sustenna injection was given because it was due and she was started on Desyrel to assist with her sleep as well as anxiety and depression. Eventually, the Desyrel had to be discontinued because it was ineffective and she was started on Remeron on February 16 because she was not sleeping still and her appetite had decreased. The Remeron was added to help with depression, sleep and also to increase her appetite. [place] level was monitored throughout her stay. Her lithium level on of discharge was 0.87, which is within therapeutic range. She also had another urinalysis which also showed no bacterial growth. Immediately prior to discharge her labs started to indicate some mild dehydration, which the medical folks just instructed her to increase her fluid. Throughout her hospitalization, she was insistent that her was not doing anything bad to her and that there were no problems at home. It was decided that she will probably benefit from an inpatient jail admission or going to an assisted living facility. MENTAL STATUS AT DISCHARGE: She is alert and oriented. She is somewhat anxious because she has been awaiting discharge pretty much since she came in. She has trended, however, towards more euthymic since she has been on the unit. She has had no mag or hypomania. She denies any audio or visual hallucinations. No delusions and no paranoia. She is being discharged today to [facility]. Her scripts were e scribed and she is discharged in psychiatrically stable condition. [place], [place] DISCHARGE SUMMARY NAME: SCOTT MARC UNIT #: [id number] ROOM: [facility] DOCTOR: SO MENDOSA BIRTHDATE: [birth year] So Mendosa NP CM:DISCHARG 151 05 SO MENDOSA 02/19/171905 interface
--- NOTE | ~2017-02-10 | PR ---
[place], [place] PROGRESS NOTE NAME: SCOTT MARC UNIT #: [id number] ROOM: 317 DOCTOR: JARETT CHRISTENSEN MD BIRTHDATE: [birth year] DOS: 02/14/2017 INTERVAL NOTE CHIEF COMPLAINT: "I wanna go home, please let me go home." SUMMARY OF THE VISIT: The patient was interviewed as she rested in bed. She engaged readily in conversation. She did not always answer the questions asked of her, but continued to monitor of stating she wanted to go home. After a while of redirection, she did accept the fact that she would not be leaving any time soon. She does seem to be redirecting slightly easier and her mood lability seems to be dissipating some. MENTAL STATUS: She is alert and oriented with time gaps. Mood does seem to be trending towards euthymia. Affect is more appropriate. There are no symptoms of hypomania or mag and there are no voiced auditory or visual hallucinations. Memory has gaps. PLAN: I will go ahead and check a lithium level in the morning to ensure that she is therapeutic and adjust the dosage accordingly. Engage in individual and steve milieu activity, returning to the least restrictive environment when psychiatrically stable. JARETT CHRISTENSEN MD CM:PNTRANS 1132 1337 JARETT CHRISTENSEN MD 02/14/17 1337 interface
--- NOTE | ~2017-02-10 | DS ---
[place], [place] DISCHARGE SUMMARY NAME: SCOTT MARC [facility] #: [id number] UNIT #: [id number] ROOM: 314 DOCTOR: SO MENDOSA BIRTHDATE: [birth year] DOS: 02/17/2017 CHIEF COMPLAINT: "I need to go home." HISTORY OF PRESENT ILLNESS: The patient is a 66-year-old white female who is very well known to us from multiple psych admissions. She lives at home with her . He did bring her in because he stated she was acting erratically, had not been sleeping or taking care of herself. According to the patient, she had a fall and her gave her some pills after the fall and then brought her in to the Emergency Room. SUMMARY OF HOSPITAL COURSE: Throughout her hospitalization, she was insistent that her was not doing anything bad to her and that there was no problem at home. It was decided that she would probably benefit from inpatient snf admission or assisted living. On admission, her lithium was restarted and her Invega Sustenna injection which was due was given and she was started on Desyrel for her sleep issues as well as her anxiety and depression. That was eventually discontinued and Remeron was added on 02/16/2017 because she was not eating well and the Remeron would help with the depression, sleep and also increase her appetite. Her lithium level was monitored during the time that she was on the unit and the dose was adjusted as needed. [place] level on 02/08/2017 was 0.97, which is within therapeutic range. Immediately prior to discharge, her labs started to indicate some mild dehydration according to medical folks, they just instructed her to increase her fluid. PAST MEDICAL HISTORY: Acute psychosis, vitamin B12 deficiency, bipolar disorder, several admissions for brief psychotic disorder, diabetes, dystonic movements, GERD, schizophrenia and a vitamin D deficiency. At discharge, she is trending much more towards euthymic. Her appetite has improved as well as her sleep. We will continue her current inpatient medications, but she has been on the lithium, the Invega Sustenna injection once a month and her Remeron. MENTAL STATUS AT DISCHARGE: She is alert and oriented. She does have some time gaps. Her mood and affect have improved significantly since the time that she came in. She continues to have some underlying anxiety, but that has improved greatly as well as there is no mag or hypomania. She is not having any audio or visual hallucinations. No delusions, no paranoia. DISPOSITION: She will be discharged to [facility]. Her scripts have been e-scribed and will be available when she gets to the long-term care facility. [place], [place] DISCHARGE SUMMARY NAME: SCOTT MARC UNIT #: [id number] ROOM: [facility] DOCTOR: SO MENDOSA BIRTHDATE: [birth year] So Mendosa NP CM:SUNNI 56 40 SO MENDOSA 02/17/172039 interface
--- NOTE | ~2017-02-10 | WRIGHTHP ---
[place], [place] PATIENT HISTORY AND PHYSICAL EXAM NAME: SCOTT MARC [facility] #: [id number] UNIT #: [id number] ROOM: 317 DOCTOR: JARETT CHRISTENSEN MD BIRTHDATE: [birth year] DOS: 02/11/2017 CHIEF COMPLAINT: "I really don't need to be here, I am just silly." HISTORY OF PRESENT ILLNESS: This is a 66-year-old white female well known to me due to multiple psychiatric admissions to the [facility]. The patient was brought in to the hospital last week by her only days after a recent discharge because of erratic behavior. No beds were available and at that time, she was not suicidal or homicidal, so she was sent home. Per the 's report, the patient continues to be very labile and unpredictable, not sleeping at night, wildly pacing. She was brought in to the ER again, and this time was very labile, yelling and screaming. She required both Haldol intramuscular and Geodon intramuscular to calm her. Upon admission to the unit, she was wildly pacing here and acting very bizarrely but subsequently had the behaviors stopped. She is admitted now to rule out organic factors and attempt to restabilize on medication with the possibility of placement. PAST MEDICAL HISTORY: Remarkable for vitamin B12 deficiency, mild cognitive impairment, vitamin D deficiency, bipolar disorder, GERD, prediabetes, hypothyroidism, tachycardia. MENTAL STATUS: The patient is alert and oriented to person, place, and approximate to time. Mood does seem to be labile. Affect at times is inappropriate. She did engage fairly well. She tries to minimize and put a good foot forward, but it is unclear whether or not she is guarded and suspicious. DIAGNOSIS: Schizoaffective disorder. PLAN: I have restarted her on lithium in the form of Eskalith CR 450 mg b.i.d. The patient had previously been on this to augment the effectiveness of the antipsychotic, and this may have been a significant stabilizing agent. The patient is due for her Invega Sustenna injection. We will verify when the exact doses due and plan to continue the Invega. We will have social work therapist explore possible placement options. At this point, given the rapidity of her psychiatric admissions and the minimal amount of time between them, it does appear that she would benefit from some type of long-term care placement with a much more structured environment. We will engage in individual and steve milieu activity, returning to such environment when stable. [place], [place] PATIENT HISTORY AND PHYSICAL EXAM NAME: SCOTT MARC UNIT #: [id number] ROOM: [facility] DOCTOR: JARETT CHRISTENSEN MD BIRTHDATE: [birth year] JARETT CHRISTENSEN MD CM:HISPHYS:PATIENT HISTORY AND PHYSICAL EXAMINATION 2 0 JARETT CHRISTENSEN MD 02/11/17850 interface
--- NOTE | ~2017-02-10 | PR ---
[place], [place] PROGRESS NOTE NAME: SCOTT MARC UNIT #: [id number] ROOM: 314 DOCTOR: JARETT CHRISTENSEN MD BIRTHDATE: [birth year] DOS: 02/15/2017 CHIEF COMPLAINT: "Please let me go home. My is not doing anything bad to me, please let me go home." SUMMARY OF THE VISIT: The patient was interviewed as she sat in her room on the bed. She engaged readily in conversation. She was fixated on being able to return home stating repeatedly that nothing is happening there bad and that her has not been mistreating her. She followed me down the qureshi and on several occasions was intrusive and continued to repetitively asked me about going home and whether she could go today or tomorrow. She was very difficult to redirect, but eventually she did redirect and walk into the dining area to sit and watch television. MENTAL STATUS: She is alert and oriented with time gaps. Mood is still somewhat labile. Affect is inappropriate at times. She is perseverative and fixated. She does not always answer questions appropriately. Memory has mild gaps. PLAN: Her lithium level this morning came back therapeutic at 0.97. We will continue her current psychotropic medication regimen at this point. We will explore possible placement options and discharge to the least restrictive environment when psychiatrically stable. JARETT CHRISTENSEN MD CM:PNTRANS [id number] JARETT CHRISTENSEN MD 02/15/17 1412 interface
[~2017-02-10 11:24] MED LIST changes: +BENZTROPINE MESY1 MG PO; +CLONAZEPAM0.5 M2 PO; +KLONOPIN0.5 MG PO; +MEMANTINE HCL10 MG PO; +NAMENDA10 MG PO; +QUETIAPINE FUM100 M2 PO; +QUETIAPINE FUM100 M3 PO; +RESTORIL15 MG PO; +RIVASTIGMINE TAR3 M1 PO; +RIVASTIGMINE TAR6 M1 PO; +TEMAZEPAM15 M1 PO; +TRAZODONE150 MG PO; +VISTARIL50 MG PO; +VITAMIN B1250 MCG PO; +VITAMIN D50000 UNIT PO
[2017-02-10 11:32] VITALS: BP 111/79
[2017-02-10 11:58] LABS: BASO % 0.3 % (0.0-1.0); EOS # 0.1 10*3/uL (0.0-0.4); EOS % 0.6 % (1.0-4.0); HEMATOCRIT 41.7 % (37.0-47.0); HEMOGLOBIN 12.8 g/dl (12.0-16.0); LYMPH # 1.9 10*3/uL (1.3-4.4); LYMPH % 21.5 % (27.0-41.0); MEAN CELL VOLUME 79.7 fl (81.0-99.0); MEAN CORPUSCULAR HGB 24.5 pg (27.0-31.0); MEAN CORPUSCULAR HGB CONC 30.7 g/dl (33.0-37.0); MEAN PLATELET VOLUME 10.3 fl (9.6-12.3); MONO # 0.5 10*3/uL (0.1-1.0); MONO % 5.1 % (3.0-9.0); NEUT # 6.5 10*3/uL (2.3-7.9); NEUT % 72.1 % (47.0-73.0); PLATELET COUNT AUTOMATED 266 10*3/uL (130-400); RED BLOOD COUNT 5.23 10*6/uL (4.10-5.10); RED CELL DISTRI WIDTH 15.4 % (0-14.5)
[2017-02-10 12:10] LABS: BUN 5 mg/dl (7-24); CHLORIDE 106 mmol/L (98-107); CREATININE 1.05 mg/dL (0.55-1.02); POTASSIUM 3.5 mmol/L (3.5-5.1); SODIUM 139 mmol/L (136-145)
[2017-02-10 12:11] LABS: ACETAMINOPHEN (TYLENOL) < 2.0 ug/ml (10-30); ETHYL ALCOHOL < 3.0 mg/dl (<3)
--- NOTE | 2017-02-10 12:41 | NUR ---
1230 PT REMAINS AGITATED AND YELLING OUT SHE DOES NOT WANT TO STAY MD MADE AWARE AND HALDOL ORDERED AND GIVEN. RAYMUNDO PAT RN.
--- NOTE | 2017-02-10 12:45 | NUR ---
at bedside, pt continues to yell out and appear agitated.
[2017-02-10] MEDS ORDERED: Motrin,Rufen800 MG PO (12:52)
--- NOTE | 2017-02-10 13:20 | NUR ---
SCOTT MARC a 66 year old F admitted via stretcher from the EMERGENCY ROOM as a emergency 72 hr. hold admission. Arrived on unit at 1320. ALLERGIES: NKA. Vital signs are: 97.3-92-20 122/77. PATIENT ADMITTED UNDER INVOLUNTARY STATUS. CALLS PLACES BY NICOLE AGUSTIN TO GUARDIAN, ALPESH DANIEL. PT REFUSED TO PARTICIPATE IN CRISIS PREVENTION PLAN. [facility] A search was conducted and hazardous articles were removed. Client was oriented to the unit. NATANAEL VARGHESE
--- NOTE | 2017-02-10 13:33 | NUR ---
CALL PLACED TO DR. CHRISTENSEN TO MAKE AWARE PT HAS ARRIVED ON THE UNIT FROM ER, PT IS VERY ANXIOUS, AGITATED AND AGGRESSIVE. UNABLE TO COMFORT OR REDIRECT. MADE AWARE PT WAS GIVEN GEODON 20MG IM AT 1137 AND HALDOL 5MG IM AT 1239 IN EMERGENCY ROOM, NEW ORDER RECIEVED TO GIVE ATIVAN 2MG IM NOW. READ BACK AND VERIFIED.
--- NOTE | 2017-02-10 14:00 | NUR ---
MADE AWARE PT IS MORE CALM AND COOPERATIVE. ATIVAN 2MG IM NOW NOT NEEDED. WAS ABLE TO REDIRECT PATIENT AND USE ONE ON ONE THERAPY TO CALM HER DOWN. STATES OK TO D/C ORDER.
[2017-02-10 14:28] VITALS: BP 122/77
--- NOTE | 2017-02-10 15:30 | NUR ---
COVERING FOR NOTIFIED AND MADE AWARE OF NEW CONSULT. NEW VO GIVEN, WRITTEN DOWN AND READ BACK, WITNESSED BY JESSICA.NATAILA.
[2017-02-10] MEDS ORDERED: VITAMIN D50000 UNIT PO (15:32)
[2017-02-10] MEDS ORDERED: TRAZODONE150 MG PO (15:33)
[2017-02-10] MEDS ORDERED: VITAMIN B1250 MCG PO (15:35)
[2017-02-10 15:36] LABS: CHOLESTEROL 195 mg/dL (<200); HDL CHOLESTEROL 42 mg/dl (40-60); LDL CHOLESTEROL 117 mg/dL (9-159); TRIGLYCERIDES 180 mg/dl (<150); VLDL CHOLESTEROL 36 mg/dL (6-40)
[2017-02-10] MEDS ORDERED: BENZTROPINE MESY1 MG PO (15:36)
[2017-02-10] MEDS ORDERED: RIVASTIGMINE TAR6 M1 PO (15:36)
[2017-02-10] MEDS ORDERED: ATARAX,VISTARIL50 MG PO (15:37)
[2017-02-10] MEDS ORDERED: NAMENDA10 MG PO (15:37)
[2017-02-10] MEDS ORDERED: INVEGA SUSTENN156 MG IM (15:39)
--- NOTE | 2017-02-10 15:42 | NUR ---
PT did not attend RT group this afternoon. PT went to her room refusing to stay
--- NOTE | 2017-02-10 15:59 | NUR ---
PER BHAVANA JUAN AT [facility], PATIENT RECEIVED INVEGA SUSTENNA ON 02/06/17 IN OFFICE. NEXT INVEGA SUSTENNA 156MG IM DUE ON 03/09/17 Q30 DAYS.
--- NOTE | 2017-02-10 16:45 | NUR ---
PATIENT CONTINUES TO REFUSE URINE SAMPLE. WILL CONTINUE TO ATTEMPT T/O THE SHIFT.
--- NOTE | 2017-02-10 17:38 | NUR ---
PATIENT IS ALERT AND ORIENTED TO PERSON AND PLACE. MOOD IS LABILE, RANGING FROM SAD AND DEPRESSED TO ANGRY, PSYCHOTIC, AND DELUSIONAL. PREOCCUPIED WITH WANTING TO GO HOME. ADMITS TO A/V HALLUCINATIONS BUT WOULD NOT ELABORATE. ATE 85% OF DINNER. REALITY PRESENTED WITH NO EFFECT T/O THE EVENING. WILL CONTINUE TO PRESENT REALITY, REORIENT, PROVIDE EMOTIONAL SUPPORT, Q15 MIN CHECKS. PT NOW RESTING IN BED AT THIS TIME.
[2017-02-10 20:00] VITALS: BP 114/74
--- NOTE | 2017-02-10 20:04 | NUR ---
PATIENT NOTED TO HAVE SMALL NODULE TO RIGHT FOREHEAD AREA. SKIN PINK TO RIGHT FOREHEAD. PATIENT STATED SHE FELL YESTERDAY TRYING TO GET INTO HER BED. PATIENT STATES SHE GOT IN ON HER HUSBANDS SIDE OF BED INSTEAD OF HER SIDE AND IT WAS NOT HER HUSBANDS FAULT. PATIENT STATES THAT WAS WATCHING BLUE BLOOD WHEN SHE FELL
--- NOTE | 2017-02-10 22:13 | NUR ---
NICOLE SPOKE WITH [employer]. [employer] JUST RECEIVED GUARDIANHSIP AND WANTS PT PLACED AT [facility]. NICOLE WILL MAKE THAT REFERRAL.
--- NOTE | 2017-02-10 23:00 | NUR ---
URINE SPECIMEN OBTAINED VIA CLEAN CATCH. URINE CLOUDY YELLOW WITH 350ML OUTPUT. NO ODOR. NO COMPLAINTS OF DYSURIA
[2017-02-10 23:46] LABS: URINE AMPHETAMINES < 1000 (1000ng/ml); URINE BARBITURATES < 200 (200ng/ml); URINE BENZODIAZEPINES < 200 (200ng/ml); URINE CANNABINOIDS (THC) < 50 (50ng/ml); URINE COCAINE < 300 (300ng/ml); URINE METHADONE < 300 (300ng/ml); URINE OPIATES < 300 (300ng/ml); URINE PHENCYCLIDINE < 25 (25ng/ml)
[2017-02-11 01:32] LABS: BILIRUBIN NEGATIVE (NEGATIVE); BLOOD 2+ (NEGATIVE); CLARITY CLEAR (CLEAR); COLOR YELLOW (YELLOW); GLUCOSE NEGATIVE (NEGATIVE); KETONE NEGATIVE (NEGATIVE); LEUKO ESTERASE TRACE (NEGATIVE); NITRITE NEGATIVE (NEGATIVE); PH 6.5 (5.0-9.0); SPECIFIC GRAVITY <= 1.005 (1.005-1.030); UROBILINOGEN 0.2 E.U./dl (0.2-1.0)
--- NOTE | 2017-02-11 04:29 | NUR ---
24 HR chart check completed.
--- NOTE | 2017-02-11 04:37 | NUR ---
B:AGITATION I: 1:1, THERAPEUTIC COMMUNICATION, GOAL ORIENTED R: WANTS TO TALK TO AND CAN NOT SLEEP P: HELP TO FIND COPING SKILLS TO DECREASE AGITATION, PARTICIPATE IN GROUPS, MEDICATION COMPLIANCE
--- NOTE | 2017-02-11 06:42 | NUR ---
Q 15 MINUTE CHECKS MAINTAINED. PATIENT HAD NO SLEEP THROUGHOUT THIS SHIFT
[2017-02-11 07:54] VITALS: BP 109/83
[2017-02-11 08:39] LABS: VITAMIN D, 25-HYDROXY 87.5 ng/mL (30-100)
--- NOTE | 2017-02-11 12:26 | NUR ---
CLINICALS GIVEN TO LEARA. APPROVED 4 DAYS. LCD 02/13 . NEXT REVIEW 02/13 AUTH # [id number]
--- NOTE | 2017-02-11 12:38 | NUR ---
PT WAS NOT REDIRECTING, PT YELLING, DELSUIONAL STATEMENTS, DEMANDING TO LEAVE, PREOCCUPIED WITH CALLING HER , THREATENING TO [place] STAFF, PT WAS ASKED SEVERAL TIMES TO CALM DOWN, STAFF TRIED TALKING TO PT TO CALM HER DOWN, PT IS EXCALATING , PT GIVEN 1 MG IM ATIVAN SECURITY AND 2 NURSES PRESENT, PT TOOK IN HER RIGHT ARM NON FORCEABLE. PT WAS COOPORATIVE WITH INJECTION, PT IS NOW LAYING IN BED
--- NOTE | 2017-02-11 19:32 | NUR ---
TREENT TEAM WAS HELD WITH THE FOLOWING TO DISCUSS CARE: DR. CHRISTENSEN, RNs, SW, AND MEDICAL STUDENT. PLACEMENT IS NEEDED PER DR. CHRISTENSEN WANDER GUARD OR LOCKED UNIT. NICOLE INFORMED DR. CHRISTENSEN THAT GUARDIAN WANTED PLACEMENT AT [facility]. NICOLE WILLSPEEAK WITH GUARDIAN. NICOLE WILL COMPLETEE PASRR.
--- NOTE | 2017-02-11 19:34 | NUR ---
SW COMPLETED PASRR AND REQUESTED BOTTLE CAPPER TO FAX TO [facility] AND FAX REFERRALS TO LIST PROVIDED.
[2017-02-11 19:39] VITALS: BP 102/44
--- NOTE | 2017-02-12 01:25 | NUR ---
CLIENT MEDICATION COMPLIANT. RESTING IN BED AT THIS TIME. VOICES NO COMPLAINTS OF PAIN OR DISCOMFORT AT THIS TIME.
--- NOTE | 2017-02-12 03:33 | NUR ---
24 HR chart check completed.
--- NOTE | 2017-02-12 04:52 | NUR ---
B: AGIATION/AXIETY I: THERAPEUTIC COMMUNICATION, GOAL ORIENTED, 1:1 R: WANTS TO TALK TO AND CONCERNED ABOUT P: HELP TO FIND COPING SKILLS TO DECREASE AGITATION, MEDICATION COMPLIANCE
--- NOTE | 2017-02-12 06:17 | NUR ---
Q 15 MINUTE CHECKS MAINTAINED. PATIENT SLEPT >8 HOURS THROUGHOUT SHIFT
[2017-02-12 07:54] LABS: ALBUMIN 3.3 gm/dl (3.1-4.5); ALKALINE PHOSPHATASE 82 U/L (45-117); BUN 8 mg/dl (7-24); CHLORIDE 106 mmol/L (98-107); POTASSIUM 3.5 mmol/L (3.5-5.1); SGOT/AST 19 IU/L (3-35); SGPT/ALT 21 U/L (12-78); SODIUM 144 mmol/L (136-145); TOTAL PROTEIN 6.8 gm/dL (6.4-8.2)
[2017-02-12 08:06] VITALS: BP 108/68
--- NOTE | 2017-02-12 08:08 | NUR ---
PHYSICAL THERAPY Patient evaluated on 3, full evaluation to follow. Continue with PT as per plan of care with fall, unit three, aggitated at times and acute debility precautions. PAtient with impaired mobility and balance deficits, may require SNF in order to return patient to (I) PLOF versus home with 24 hour family assist and home health RN, PT and aides. PAtient is high complexity via chart review, tests and evaluation: 19429. Thank you for this referral. Fiorella Taylor,PT
--- NOTE | 2017-02-12 08:37 | NUR ---
IM ATIVAN GIVEN 1 MG FOR INCREASED AGGITATION ANXIETY, PT KEEPS CLAIMING THAT HER DIDN;T SHOVE HER OUT OF HER BED, DEMANDING TO GO HOME. PT KEPT GOING TO THE NURSES STATION WINDOW, DEMANDING TO TALK TO DR. CHRISTENSEN. PT WASN;T REDIRECTING PT WAS COOPORATIVE WITH JUST THIS NURSE PRESENT FOR IM
--- NOTE | 2017-02-12 11:04 | NUR ---
Air Conditioning Sheet Metal Installer Note: Faxed patient's demograpghics form/insurance information to [facility], per her request.
--- NOTE | 2017-02-12 11:44 | NUR ---
PT refused to attend RT Group/Exercise. PT very agitated when refusing, leaving room and going into bathroom
--- NOTE | 2017-02-12 15:56 | NUR ---
PT did not attend RT Group/Riddles,Choices this afternoon. PT was asleep in her room. When encouraging PT to come to group PT opened her eyes but refused to answer
--- NOTE | 2017-02-12 16:03 | NUR ---
TREATMENT WAS HELD TO DISCUSS CARE WITHTHE FOLLOWING: DR. CHRISTENSEN, SW, AT, RN, AND MEDICAL STUDENT. SW SUBMITTD PASRR FOR PROCESSING AND REFERRALS MADE TO FACILITIES. GUARDIAN PREFERS [facility].
--- NOTE | 2017-02-12 16:05 | NUR ---
[facility] MEDELLIN ON UNIT TO ASSESS PT. [facility] DO NOT HAVE BEHAVIOR UNITS. PT WA DENIED.
--- NOTE | 2017-02-12 16:08 | NUR ---
[facility] HERE TO ASSESS PT. [facility] WILL ACCEPT PT.
[2017-02-12 20:26] VITALS: BP 104/56
--- NOTE | 2017-02-13 05:35 | NUR ---
B: AGITATION/ANXIETY I: TERAPEUTIC COMMUNICATION, GOAL ORIENTATION, 1:1 R: FIXATED ON PEERS , STATES THEY ARE DOING NOTHING WRONG AND THAT THEY ARE GOING TO BE TOGETHER AND GET P: PRESENT REALITY, DISCUSS COPING SKILLS TO DECREASE ANXIETY, MEDICATION COMPLIANCE.
--- NOTE | 2017-02-13 05:46 | NUR ---
PT ISOLATIVE TO ROOM, DIFFICULT TO ARROUSE FOR HS SNACK. MEDICATION COMPLIANT WITH OUT DIFFICULTY. NO ANXIETY NOTED THIS SHIFT. NON SENSICLE SPEECH AND DELUSIONS OF MARRYING PEERS NOTED AND VOICING FEELINGS OF SHAME JUSTIFYING PERCIEVED ACTIONS. PT SLEPT THROUGHOUT NIGHT WITH OUT INTURRUPTION 8 HOURS TOTAL. SEE FLOW SHEET FOR SPECIFIC MONITORING.
[2017-02-13 07:46] LABS: ALBUMIN 3.5 gm/dl (3.1-4.5); ALKALINE PHOSPHATASE 83 U/L (45-117); BUN 9 mg/dl (7-24); CHLORIDE 107 mmol/L (98-107); POTASSIUM 3.7 mmol/L (3.5-5.1); SGOT/AST 25 IU/L (3-35); SGPT/ALT 24 U/L (12-78); SODIUM 140 mmol/L (136-145); TOTAL PROTEIN 7.3 gm/dL (6.4-8.2)
[2017-02-13 08:09] VITALS: BP 137/77
--- NOTE | 2017-02-13 09:51 | NUR ---
TREATMENT TEAM WAS HELD TO DISCUSS CARE WITH THE FOLLOWING: DR. CHRISTENSEN, NURSE PRACTIONER, MEDICAL STUDENT, RN, SW, AND AT. SW INDFORMED DR. CHRISTENSEN THAT PT WAS ACCEPTED AT [facility].
--- NOTE | 2017-02-13 10:57 | NUR ---
CLINICALS LEFT ON JESUS'S VOICE MAIL.
--- NOTE | 2017-02-13 10:59 | NUR ---
PHYSICAL THERAPY Lynn seen this AM and was up in the day room having her breakfast. Stopped back 1 hr later and Pt was back in her bed said that she was to tired to gait and was going back to sleep. CASSANDRA HERMAN PRODUCTION ASSEMBLER.
--- NOTE | 2017-02-13 11:24 | NUR ---
SW STATES SHE WILL BE SENDING ADMISSION PAPERWORK TO GUARDIAN TO OBTAIN CONSENTS AND CONSENT FOR ADMISSION.
--- NOTE | 2017-02-13 12:10 | NUR ---
RAYMUNDO LEE AT [facility] MEDIC- 3 MORE DAYS [id number] WITH NEXT REVIEW DUE 02/16.
--- NOTE | 2017-02-13 15:15 | NUR ---
PT did not attend RT Group/games. PT absolutly refuses to participate. This staff member has repeatedly encouraged PT to join in groups but PT sates " i did not come here on my own and you cant make me come to activities." Explained to PT that i was not making her come to group i was asking her to please come to group. PT stated "good because i am not going." This staff member will continue to encourage PT to participate
--- NOTE | 2017-02-13 15:24 | NUR ---
PT refuses to answer any questions on the assessment. PT stated she doesnt want to be here and she is not doing anything.
--- NOTE | 2017-02-13 18:00 | NUR ---
VM from [facility] CM reporting that Pt was covered agust , 27, and review on .
--- NOTE | 2017-02-13 18:02 | NUR ---
Misty from [facility] on unit to assess Pt for PASRR.
--- NOTE | 2017-02-13 18:39 | NUR ---
PT ALERT AND ORIENTED X4 WITH PERIODS OF CONFUSION AND DELUSIONS. IDEAS OF REFRENCE OBSERVED WITH PT THIS SHIFT. HAS BEEN NOTED TO BE WATCHING TV AND APPLYING WHAT SHE SEE'S TO HERSELF. REALITY PRESENTED AND ONLY MET WITH INCREASED IRRITABILITY. MOOD REMAINS LABILE, RANGING FROM DEPRESSED AND ISOLATIVE TO YELLING AND DELUSIONAL. TEARFUL OUTBURSTS AT TIMES HAVE BEEN NOTED THROUGHOUT THE SHIFT, EMOTIONAL SUPPORT PROVIDED WITH MODERATE EFFECT FOR SHORT PERIODS OF TIME. NAPS INTERMITTENTLY THROUGHOUT THE DAY IN HER BED. MEDICATION COMPLIANT WITHOUT DIFFICULTY. APPETITE FAIR THIS SHIFT. TAKING FLUIDS WELL.
[2017-02-13 20:00] VITALS: BP 111/68
--- NOTE | 2017-02-14 04:14 | NUR ---
24 HR chart check completed.
--- NOTE | 2017-02-14 06:11 | NUR ---
PT SLEPT APPROXIMATELY 8 HOURS THIS SHIFT. NO S/S OF DISTRESS. NO C/O PAIN. Q15 MINUTE SAFETY CHECKS MAINTAINED. MEDICATION COMPLIANT. PT SHOWERED THIS SHIFT. SEE [facility] FLOWSHEET FOR SPECIFIC MONITORING.
[2017-02-14 08:07] VITALS: BP 117/63
--- NOTE | 2017-02-14 10:45 | NUR ---
DR. CHRISTENSEN HERE TO SEE PT AT THIS TIME.
--- NOTE | 2017-02-14 18:37 | NUR ---
PT IS ALERT AND ORIENTED TO PERSON, PLACE AND TIME. SOME ST/LT MEMORY DEFICITS NOTED. RESPIRATIONS EASY ON ROOM AIR. MOOD IS LABILE, AFFECT IS FLAT. SPEECH IS WNL AND COHERENT. ABLE TO MAKE NEEDS KNOWN. PT DENIES HALLUCINATIONS, NO RESPONSE TO INTERNAL STIMULI NOTED. PT CONTINUES TO VOICE PARANOID DELUSIONS THROUGHOUT THE DAY STATING "IS SOMEONE COMING TO KILL ME?" "I'M AFRAID OF THE MEN AND WOMEN, ALL THE MEN AND WOMEN, I'M AFRAID THEY'LL COME AND KILL ME AND RAPE ME." REALITY ORIENTATION AND EMOTIONAL SUPPORT PROVIDED. PT TEARFUL AT TIMES THROUGHOUT THE DAY. POOR APPETITE TODAY DESPITE ENCOURAGEMENT. NO DISTRESS NOTED. Q15 MIN SAFETY CHECKS MAINTAINED, REFER TO [facility] FLOWSHEET FOR SPECIFIC MONITORING.
[2017-02-14 20:28] VITALS: BP 112/54
--- NOTE | 2017-02-14 21:20 | NUR ---
HS BEDSIDE GLUCOSE 97
--- NOTE | 2017-02-14 21:22 | NUR ---
24 HR chart check completed.
--- NOTE | 2017-02-15 05:51 | NUR ---
PT HAS BEEN OBSERVED ON Q 5 MIN CHECKS & HAS SLEPT QUIETLY THROUGHOUT THE SHIFT PAST 2119 WITH 1 BRIEF AWAKENING.
--- NOTE | 2017-02-15 06:43 | NUR ---
AM BEDSIDE GLUCOSE 104
[2017-02-15 08:23] VITALS: BP 106/60
--- NOTE | 2017-02-15 18:53 | NUR ---
PT IS ALERT AND ORIENTED TO PERSON, PLACE, APPROXIMATE TIME AND SITUATION. ST/LT MEMORY DEFICITS NOTED. RESPIRATIONS EASY ON ROOM AIR. MOOD REMAINS LABILE, PT TEARFUL AT TIMES, ELATED AT OTHERS, AFFECT REMAINS FLAT. SPEECH IS SOFT AND SLOW BUT COHERENT, PT ABLE TO MAKE NEEDS KNOWN TO STAFF WITHOUT DIFFICULTY. PT DENIES HALLUCINATIONS, NO RESPONSE TO INTERNAL STIMULI NOTED. PT DENIES SI/HI. PT CONTINUES TO EXHIBIT AND VOICE PARANOID DELUSIONS STATING TO STAFF "I'M SCARED. SOMEONE IS OUT TO GET ME." EMOTIONAL SUPPORT AND REALITY ORIENTATION PROVIDED THROUGHOUT THE SHIFT. PT IS MEDICATION COMPLIANT WITHOUT DIFFICULTY. AMBULATORY WITH STEADY GAIT, INDEPENDENT WITH ADLS, CONTINENT OF BOWEL AND BLADDER. PT CONTINUES TO DISPLAY POOR APPETITE DESPITE ENCOURAGEMENT, HOWEVER SHE IS TAKING FLUIDS WITHOUT DIFFICULTY. NO DISTRESS NOTED. Q15 MIN SAFETY CHECKS MAINTAINED, REFER TO [facility] FLOWSHEET FOR SPECIFIC MONITORING.
--- NOTE | 2017-02-15 19:24 | NUR ---
SHIFT CHART CHECK COMPLETED.
[2017-02-15 20:00] VITALS: BP 110/60
--- NOTE | 2017-02-15 21:03 | NUR ---
HS BEDSIDE GLUCOSE 92
--- NOTE | 2017-02-15 22:06 | NUR ---
24 HR chart check completed.
--- NOTE | 2017-02-16 05:47 | NUR ---
PT HAS BEEN OBSERVED ON Q 15 MIN CHECKS & HAS SLEPT QUIETLY THROUGHOUT THE SHIFT PAST 2129.
--- NOTE | 2017-02-16 06:38 | NUR ---
AM BEDSIDE GLUCOSE 98
[2017-02-16 06:59] VITALS: BP 116/78
[2017-02-16 08:07] VITALS: BP 116/78
--- NOTE | 2017-02-16 10:00 | NUR ---
PT IS ALERT AND ORIENTED TO PERSON, PLACE, TIME AND SITUATION. ST/LT MEMORY DEFICITS NOTED AT TIMES. RESPIRATIONS EASY ON ROOM AIR. MOOD REMAINS LABILE WITH FLAT AFFECT. SPEECH IS SOFT AND SLOW BUT COHERENT, PT ABLE TO MAKE NEEDS KNOWN WITHOUT DIFFICULTY. PT DENIES HALLUCINATIONS, NO RESPONSE TO INTERNAL STIMULI NOTED. PT DENIES SI/HI. PT CONTINUES TO BE PARANOID AND FEARFUL. PT HAS COME TO THIS NURSE FREQUENTLY AND STATES "I CAN'T TAKE 2 LITHIUM. I'M SO DOPED AND SO DROWSY I CAN'T EVEN GET UP AND GET DRESSED IN THE MORNING." PT DOES EXHIBIT LOW ENERGY BUT HAS BEEN ABLE TO DRESS HERSELF THIS AM AND WALK THE HALLS INDEPENDENTLY. WILL PASS ALONG TO DR. CHRISTENSEN. PT IS CONTINENT OF BOWEL AND BLADDER, INDEPENDENT WITH ADLS. FEEDS SELF, APPETITE IMPROVED TODAY FROM YESTERDAY'S ASSESSMENT, PT STATES TO THIS NURSE "I'LL EAT BETTER AT HOME." NO DISTRESS NOTED. Q15 MIN SAFETY CHECKS MAINTAINED, REFER TO [facility] FLOWSHEET FOR SPECIFIC MONITORING.
--- NOTE | 2017-02-16 10:29 | NUR ---
TREATMENT TEAM WAS HELD TO DISCUSS CARE WITHTHE FOLLOWING PRESENT: DR. CHRISTENSEN, RN, AT, AND SW. SW REPORTED THAT PT WAS ACEPTED AT [facility]. DR. CHRISTENSEN STATED DISCHARGE PENDING FOR THURSDAY IF PASRR IS BACK. ZI FROM [facility] WAS HERE ON THURSDAY TO COMPLETE ASSESSMENT.
--- NOTE | 2017-02-16 10:41 | NUR ---
NICOLE SPOKE WITH [facility] LIASON FOR HANNY AARON. CAMI DID NOT RECEIVE FACE SHEET. NICOLE FAXED INFORMATION AGAIN AND FAXED IT TI [employer] SO THAT CAMI CAN TAKE IT TO [facility] PER CAMI'S REQUEST.
--- NOTE | 2017-02-16 11:37 | NUR ---
PT did attend RT Group/Reminicing this morning as well as participated. PT withdrawn and quiet some of the time but then PT would be talkative without prompting. PT asked a couple times if she could go to her room but AT encouraged her to stay and participate and PT would stay. PT did not seem nor get agitated from this.
--- NOTE | 2017-02-16 12:23 | NUR ---
RAYMUNDO LEE AT [facility] MEDIC. TODAY IS LAST COVERED DAY. TO CALL REVIEW TOMORROW IF NOT DC.
--- NOTE | 2017-02-16 13:00 | NUR ---
DR. SALAMANCA AND DR. VINSON HERE TO SEE PT AT THIS TIME, MADE AWARE PT'S BSG CHECKS HAVE BEEN WNL, HIGHEST WAS 119, DR. SALAMANCA STATES OK TO DISCONTINUE BSG CHECKS AND SS.
--- NOTE | 2017-02-16 13:29 | NUR ---
PHYSICAL THERAPY Mrs Jaquez seen this AM 1:1 and said that she would go for her therapy walk. All transfers were CGA X 1, no LOB. Followed by gait total 230' X 1, verbal cues for gait safety, turns and balance with one sitting rest with this. Then Pt down to the day room for her breakfast, treatment time 24 min. CASSANDRA HERMAN METAL TEMPLATE MAKER.
--- NOTE | 2017-02-16 15:43 | NUR ---
PT did not attend RT Group/Cards. PT was asleep in her room
--- NOTE | 2017-02-16 18:41 | NUR ---
SHIFT CHART CHECK COMPLETED.
[2017-02-16 20:14] VITALS: BP 136/73
--- NOTE | 2017-02-16 20:25 | NUR ---
SW RECEIVED BABAK BARKLEY FROM [facility]. PT APPROVED FOR [facility] PLACEMENT. COPY ON CHART.
--- NOTE | 2017-02-16 20:25 | NUR ---
NICOLE LEFT VM FOR LEGAL GUARDIAN ROGER MCGUIRE ABOUT PLACEMENT. NICOLE REFAXED REFERRAL TO [facility] SINCE IT WAS NOT RECEIVED PER LAUREN RIVERA.
--- NOTE | 2017-02-16 20:34 | NUR ---
CM RECEIVED VM FROM REPORTING THAT PT'S lcd WAS TODAY AND REVIEW DUE 02/17.
--- NOTE | 2017-02-17 03:23 | NUR ---
P: ANXIETY AND AGITATION, PT PREOCCUPIED WITH LITHIUM DESPITE INFORMING PT THAT LABS ARE WITH IN NORMAL LEVELS AND EDUCATING PT ON MEDICATION CHANGES. I: 1-1 PROVIDED ENFORCE COPING SKILLS, EDUCATE ON MEDICATIONS AND ADMINISTER ORDERED. R: PT IN AGREEMENT TO GIVE LITHIUM A CHANCE TO WORK AND TRY AND ELIMINATE TRAZODONE. P: CONTINUE TO PROVIDE 1-1, PRESENTATION OF REALITY, ENFORCEMENT OF COPING SKILLS, MED EDUCATION AND PARTICIPATION IN GROUPS.
--- NOTE | 2017-02-17 03:45 | NUR ---
PT REPORTING PAIN TO BLE SCALE OF 6 OF 10. PRN PO TYLENOL 650 MG ADMINISTERED
--- NOTE | 2017-02-17 04:32 | NUR ---
PT SLEEPING AT THIS TIME NO VISIBLE S/S OF DISCOMFORT. PRN TYLENOL EFFECTIVE
--- NOTE | 2017-02-17 04:32 | NUR ---
24 HR chart check completed.
--- NOTE | 2017-02-17 06:21 | NUR ---
PT SLEPT WITH ONLY ONE INTURRUPTION FOR PAIN TOTAL OF 7 HOURS. PLESANT AND COOPERATIVE WITH CARE. EARLY AM SHOWER.
[2017-02-17 06:30] LABS: BASO # 0.1 10*3/uL (0.0-0.1); BASO % 0.5 % (0.0-1.0); EOS # 0.1 10*3/uL (0.0-0.4); EOS % 1.2 % (1.0-4.0); HEMATOCRIT 44.5 % (37.0-47.0); HEMOGLOBIN 13.6 g/dl (12.0-16.0); LYMPH # 2.6 10*3/uL (1.3-4.4); LYMPH % 22.7 % (27.0-41.0); MEAN CELL VOLUME 82.6 fl (81.0-99.0); MEAN CORPUSCULAR HGB 25.2 pg (27.0-31.0); MEAN CORPUSCULAR HGB CONC 30.6 g/dl (33.0-37.0); MEAN PLATELET VOLUME 10.3 fl (9.6-12.3); MONO # 0.9 10*3/uL (0.1-1.0); MONO % 7.5 % (3.0-9.0); NEUT # 7.6 10*3/uL (2.3-7.9); NEUT % 67.7 % (47.0-73.0); PLATELET COUNT AUTOMATED 316 10*3/uL (130-400); RED BLOOD COUNT 5.39 10*6/uL (4.10-5.10); RED CELL DISTRI WIDTH 16.3 % (0-14.5); WHITE BLOOD COUNT 11.3 10*3/uL (4.8-10.8)
[2017-02-17 07:05] LABS: BUN 5 mg/dl (7-24); CHLORIDE 104 mmol/L (98-107); POTASSIUM 3.3 mmol/L (3.5-5.1); SGOT/AST 16 IU/L (3-35); SGPT/ALT 28 U/L (12-78); SODIUM 141 mmol/L (136-145)
[2017-02-17 07:06] LABS: ALKALINE PHOSPHATASE 90 U/L (45-117); TOTAL PROTEIN 7.8 gm/dL (6.4-8.2)
[2017-02-17 07:56] VITALS: BP 117/64
[2017-02-17] MEDS ORDERED: INVEGA SUSTENN156 MG IM (09:10)
[2017-02-17] MEDS ORDERED: LITHIUM CARBON450 M1 PO (09:10)
[2017-02-17] MEDS ORDERED: BENZTROPINE MESY1 MG PO (09:10)
[2017-02-17] MEDS ORDERED: Vitamin D PO (09:10)
[2017-02-17] MEDS ORDERED: MEMANTINE HCL10 MG PO (09:10)
[2017-02-17] MEDS ORDERED: RIVASTIGMINE TAR3 M1 PO (09:10)
[2017-02-17] MEDS ORDERED: B12,B-12,B 12500 MC1 PO (09:10)
[2017-02-17] MEDS ORDERED: MIRTAZAPINE15 M2 PO (09:10)
--- NOTE | 2017-02-17 11:16 | NUR ---
PHYSICAL THERAPY CO-SIGN I approve of the Phyical Therapy notes written above. BRANDI CHOUDHURY PT
--- NOTE | 2017-02-17 13:14 | NUR ---
PT did not attend RT Group/Coloring with reminiscing. PT refused telling AT she wanted to rest
--- NOTE | 2017-02-17 15:49 | NUR ---
PT did not attend RT Group/coloring today. PT refused. PT comes in and out of the room several times during group. PT will occasionally say things out loud such as "i dont want any supper."
--- NOTE | 2017-02-17 18:25 | NUR ---
NICOLE spoke with Architecture Professor Solmen about discharge. Architecture Professor Solmen wants to try Pt at [facility] before a locked unit. NICOLE explained that she waiting for acceptance from [facility].
--- NOTE | 2017-02-17 18:26 | NUR ---
Nicole spoke with Ariella at [facility] about placement. Toy stated that [facility] will accept PT if she is not exit seeking. NICOLE kaya speak with Pt to stress the importanve of her not walkig away from facility.
--- NOTE | 2017-02-17 18:28 | NUR ---
NICOLE returned call to Ariella at [facility]. Pt agreed to come to facility and not leave unless she has permission to go withher Wally. Toy will confirm with Hanane of acceptance and LOC is needed due to facility not able to accept skilled.
--- NOTE | 2017-02-17 18:29 | NUR ---
Call received from Ariella confirmig acceptance of Pt. Ash will complete LOC and let Ariella know when it is received.
--- NOTE | 2017-02-17 18:30 | NUR ---
VM received from [facility] informing that [facility] elder snot process [facility] LOC. Lashawn will call in morning to confirm it is [employer] who will need to do LOC processing.
--- NOTE | 2017-02-17 18:30 | NUR ---
SW completed LOC and faxed to [id number] for processing.
--- NOTE | 2017-02-17 18:32 | NUR ---
NICOLE received Vm from [facility] ([phone]) informing that approved was granted to [facility] for [facility]p stay per submissPorfirio from [facility]. NICOLE returned call and left VM. Xiomy returned call [facility] will need to call to make request for approval from [place].
[2017-02-17 19:58] VITALS: BP 125/72
--- NOTE | 2017-02-17 21:40 | NUR ---
P-1 SCHIZOAFFECTIVE DISORDER I- TEACH NEW COPING SKILLS, TEACH DIFFERENCE BETWEEN DELUSIONS AND REALITY EXPLAIN ALL MEDICATIONS, PROVIDE EMOTIONAL SUPPORT P- ORIENTED X'S 3 NO DELUSIONS, IMPROVED SELF ESTEEM, MEDICATION COMPLIANT P#2- ELOPEMENT RISK I- EXPLAIN RISKS OF ELOPING FROM FACILITY. POINT OUT POSITIVES OF NEW FACILITY P- NO ELOPEMENT
--- NOTE | 2017-02-17 22:01 | NUR ---
EASILY AWAKENED FOR MEDICATIONS. ISOLATIVE TO ROOM EXCEPT FOR SNACK. HAT PLACED IN BATHROOM AND CLIENT INFORMED WE NEED URINE. VERBALIZED UNDERSTANDING BUT WILL MONITOR
[2017-02-17 22:26] LABS: BILIRUBIN NEGATIVE (NEGATIVE); BLOOD 2+ (NEGATIVE); CLARITY CLEAR (CLEAR); COLOR YELLOW (YELLOW); GLUCOSE NEGATIVE (NEGATIVE); KETONE NEGATIVE (NEGATIVE); LEUKO ESTERASE 3+ (NEGATIVE); NITRITE NEGATIVE (NEGATIVE); SPECIFIC GRAVITY <= 1.005 (1.005-1.030); UROBILINOGEN 0.2 E.U./dl (0.2-1.0)
[2017-02-17 22:44] LABS: BACTERIA TRACE; EPITHELIAL CELLS 20-25; WBC 16-20 wbc/hpf (0-5)
--- NOTE | 2017-02-18 00:05 | NUR ---
RESTLESS FOR SHORT PERIOD AFTER MEDICATIONS. REFUSES TO KEEP HEAD OF BED AT 30 DEGREE. EYES CLOSED NOW. RESP EASY NON LABORED. MOVES SELF IN BED
--- NOTE | 2017-02-18 02:22 | NUR ---
24 HR chart check completed.
--- NOTE | 2017-02-18 05:54 | NUR ---
TYLENOL GIVEN FOR C/O LEG PAIN 03/31. CLIENT AMBULATING IN RAMAN OFF AND ON THIS SHIFT
--- NOTE | 2017-02-18 06:49 | NUR ---
STATES TYLENOL HELPING THE PAIN IN HER LEGS.
[2017-02-18 06:59] LABS: BASO # 0.1 10*3/uL (0.0-0.1); BASO % 0.5 % (0.0-1.0); EOS # 0.2 10*3/uL (0.0-0.4); EOS % 1.5 % (1.0-4.0); HEMATOCRIT 41.4 % (37.0-47.0); LYMPH # 2.4 10*3/uL (1.3-4.4); LYMPH % 23.5 % (27.0-41.0); MEAN CORPUSCULAR HGB 25.4 pg (27.0-31.0); MEAN CORPUSCULAR HGB CONC 31.4 g/dl (33.0-37.0); MEAN PLATELET VOLUME 10.4 fl (9.6-12.3); MONO # 0.7 10*3/uL (0.1-1.0); MONO % 6.9 % (3.0-9.0); NEUT # 6.8 10*3/uL (2.3-7.9); NEUT % 67.3 % (47.0-73.0); PLATELET COUNT AUTOMATED 291 10*3/uL (130-400); RED BLOOD COUNT 5.11 10*6/uL (4.10-5.10); RED CELL DISTRI WIDTH 15.9 % (0-14.5); WHITE BLOOD COUNT 10.2 10*3/uL (4.8-10.8)
[2017-02-18 07:29] LABS: ALBUMIN 3.8 gm/dl (3.1-4.5); BUN 7 mg/dl (7-24); CHLORIDE 107 mmol/L (98-107); POTASSIUM 3.8 mmol/L (3.5-5.1); SODIUM 139 mmol/L (136-145)
[2017-02-18 07:34] LABS: ALKALINE PHOSPHATASE 77 U/L (45-117); CREATININE 0.93 mg/dL (0.55-1.02); SGOT/AST 12 IU/L (3-35); SGPT/ALT 23 U/L (12-78); TOTAL PROTEIN 7.1 gm/dL (6.4-8.2)
[2017-02-18 08:37] VITALS: BP 119/71
[2017-02-18] MEDS ORDERED: Synthroid,Levo25 MCG PO (09:02)
--- NOTE | 2017-02-18 10:34 | NUR ---
PT did not attend RT Group this morning. PT was laying on her bed and AT tried to encourage PT to join group but PT stated she wanted "to rest until she went home." AT eplained she could rest when she got home and enjoy a fun group before she leaves and PT still refused.
--- NOTE | 2017-02-18 10:57 | NUR ---
Mood is depressed and Lynn has voiced some paranoid ideas regarding her prescribed medication therapy. She did meet with So [facility], to discuss her concerns. Education and support was provided. She is also noted to exhibit some anxiety related to her pending discharge. She states a desire to return home with her . Awaiting information from vp digital marketing social media and crm regarding discharge plans and discharge time. Jacquelin denies experiencing any hallucinatory activity when questioned. Compliant with prescribed medications. Limited in interactions with peers. Refer to [facility] flowsheet for specific monitoring.
--- NOTE | 2017-02-18 11:43 | NUR ---
VOICE MAIL LEFT FOR JESUS AT [facility] MEDIC THAT PT DC WAS SRITTEN YESTERDAY BUT STILL WAITING PRECERT FROM [facility] FOR SNF STAY. LCD 02/16/17.
--- NOTE | 2017-02-18 18:09 | NUR ---
TREATMENT EAM WAS HLED WITH THE FOLLOWING: DR. CHRISTENSEN, LODGE OFFICER. MEDICAL STUDENT RN, AT, AND SW. PT TO BE [facility]CHARGED [facility].
--- NOTE | 2017-02-18 18:10 | NUR ---
VM FROM [facility] AARON REPORTING PREAUTH WAS RECEIVED. SW REPOSNDED BACK BY INFORMING GUARDIAN CHOOSE ANOTHER FACILITY.
--- NOTE | 2017-02-18 18:10 | NUR ---
NICOLE SPOKE SEVERAL TIMES WITH [facility] ABOUT PRECERT FOR [facility]. INFORMATION WAS SUBMITTED AND WAITING FOR RESPONSE.
--- NOTE | 2017-02-18 18:12 | NUR ---
COMMUNITY LIVING SPECIALIST INFORMED SW THAT DR. SALAMANCA ON UNIT REPORTING THAT PT HAD UTI AND TREATED HER WITH ONCE ANTIBIOTIC DRINK AND TO FOLLOW UP WITH HIM IN A WEEK.
[2017-02-18 20:00] VITALS: BP 136/84
[2017-02-18 20:37] VITALS: BP 146/97
--- NOTE | 2017-02-18 22:19 | NUR ---
P#1--SCHIZO AFFECTIVE I- EXPLAIN ALL MEDICATIONS, EMOTIONAL SUPPORT. CONTINUE TO ORIENT TO CURRENT SITUATION. REVIEW LIFE/COPING SKILLS P--MEDICATION COMPLIANCE. ABLE TO FOCUS THOUGHTS IN A MANERLY PROGRESSION, DEVELOPE IMPROVED SELF ESTEME P#2--FALLS I--KEEP WALKWAYS CLEAR. MONITOR FOR CHANGE IN GAIT P--NO FALLS
--- NOTE | 2017-02-18 23:14 | NUR ---
TYLENOL GIVEN FOR GENERALIZED BODY PAIN
--- NOTE | 2017-02-19 02:06 | NUR ---
24 HR chart check completed. RESTING QUIET WITH EYES CLOSED. APPEARS TYLENOL EFFECTIVE
--- NOTE | 2017-02-19 02:40 | NUR ---
CLIENT TO WINDOW, YELLING AND STOMPING THAT SHE WANTS TO GO HOME. SAYS SHE WAS PROMISED. TRIED TO REDIRECT ABOUT THE TIME AND WE WOULD DISCUSS IT IN THE MORNING. SHE YELLED AT STAFF STOMPED HER FEET AND THREW ARMS UP IN THE AIR AND ANNOUNCED "FINE I'M NOT GOING TO GET A SHOWER OR EAT". SHE THEN TURNED AND WENT BACK TO ROOM
--- NOTE | 2017-02-19 03:50 | NUR ---
BACK TO NURSES STATION FOR A DRINK. C/O WATER NOT COLD ENOUGH. BEGAN ARGUING AGAIN ABOUT GOING HOME, SAYING SHE DIDN'T DO ANYTHING WRONG. UNABLE TO REDIRECT. WENT INTO QUIET ROOM
--- NOTE | 2017-02-19 06:35 | NUR ---
REFUSED MEDICATIONS. STATES IF I DON'T GET TO GO HOME I WON'T TAKE ANY MEDICINES OR SHOWER. EMOTIONAL SUPPORT REBUFFED
[2017-02-19 07:52] VITALS: BP 113/82
--- NOTE | 2017-02-19 08:02 | NUR ---
PHYSICAL THERAPY Lynn seen this AM 1:1 for her therapy gait. Pt was up in the day room. All transfers were independent. Followed by gait 250' X 2, sit rest, little verbal cueing for gait and balance safety and was independent gait having no LOB. Pt said that she walks the qureshi independent now, Pt back up in the day room for her breakfast CASSANDRA HERMAN PTA.
[2017-02-19 08:09] VITALS: BP 113/82
--- NOTE | 2017-02-19 12:54 | NUR ---
PT did not attend [facility] Group[facility] this morning. PT stated "if i cant go home im not doing anything except laying in bed." AT encouraged PT to join group but PT stated "No I aint going to." AT will encourage PT to come to group this afternoon.
--- NOTE | 2017-02-19 13:56 | NUR ---
PHYSICAL THERAPY making progress towards goals. Continue with PT as pr plan of care towards original goals. End date 03/06/17. Fiorella Holbrook,PT
--- NOTE | 2017-02-19 14:49 | NUR ---
LLOYD IS COMPLIANT WITH PRESCRIBED MEDICATIONS. ON 1:1 INTERACTION SHE IS VERBAL AND CONTINUES TO EXPRESS A DESIRE FOR DISCHARGE. RECEIVED TELEPHONE CALL FROM [facility] THAT SHE HAS BEEN ACCEPTED @ THEIR FACILITY. DISCUSSED WITH LLOYD THE IMPORTANCE OF COMPLIANCE POST DISCHARGE AND SHE STATES UNDERSTANDING. SHE IS EXPRESSING A DESIRE TO GO HOME WITH HER , BUT STATES THAT SHE IS WILLING TO GO TO THE RETIREMENT TEMPORARILY. AT THIS TIME OF DISCHARGE, LLOYD'S MOOD IS STABLE. SHE HAS EXPRESSED SOME PARANOID IDEAS @ TIMES, BUT A DECREASE IS NOTED. NURSE TO NURSE REPORT PROVIDED TO KYAW @ [facility]. LLOYD DID LEAVE THIS FACILITY, DISCHARGED TO [facility] ON THIS DATE @ 1450. SHE IS BEING TRANSPORTED VIA AMBULANCE. REFER TO DISPOSITION FOR SPECIFIC DISCHARGE INFORMATION.
--- NOTE | 2017-02-19 17:55 | NUR ---
TREATEMETN TEAM WAS HELD WITH THE FOLLOWING: DR. CHRISTENSEN, VANCEO, RN, MEDIAL STUDENT, AT, AND SWs. WAITIGN ON PRECERT FOR [facility]. DR. CHRISTENSEN SAID WHEN PRECERT IS BACK PT CAN BE DISCHARGED.
--- NOTE | 2017-02-19 17:56 | NUR ---
SW CHECKED WITH [facility]VA PRE CERT NOT BACK THIS MORNING. WHILE SW WAS OUT OF BUILDING PRECERT CAME BACK. PT WAS SCHEDULED FOR DISCAHRGE AT 2:30PM. DISCHARGE PAPERWORK TO BE FAXED TO [facility]. PT WAS DISCHARGED TO [facility].
--- NOTE | 2017-02-20 08:31 | NUR ---
PHYSICAL THERAPY CO-SIGN I approve of the Phyical Therapy notes written above. BRANDI CHOUDHURY PT
== END 2017-02-19 14:50 | disposition other institution (70) | DRG 885 ==
LOC: ED 11:24 → 3N 13:29
PROVIDERS: Emergency Medicine; Internal Medicine; ADMIT Psychiatry & Neurology Psychiatry
DX: F25.8 Other schizoaffective disorders (principal); N17.0 Acute kidney failure with tubular necrosis; F23 Brief psychotic disorder; N39.0 Urinary tract infection, site not specified; G31.84 Mild cognitive impairment of uncertain or unknown etiology; E55.9 Vitamin D deficiency, unspecified; K21.9 Gastro-esophageal reflux disease without esophagitis; E02 Subclinical iodine-deficiency hypothyroidism; E11.65 Type 2 diabetes mellitus with hyperglycemia; F31.60 Bipolar disorder, current episode mixed, unspecified; E53.8 Deficiency of other specified B group vitamins; E87.6 Hypokalemia; R31.9 Hematuria, unspecified; D72.810 Lymphocytopenia; E78.1 Pure hyperglyceridemia; E86.0 Dehydration; F41.9 Anxiety disorder, unspecified; Z98.51 Tubal ligation status; Z87.891 Personal history of nicotine dependence; Z81.1 Family history of alcohol abuse and dependence; Z79.899 Other long term (current) drug therapy

== ENCOUNTER → 2018-12-28 | Outpatient (CLI) | payer MEDICARE ==
[~2018-12-28] MED LIST changes: +LITHIUM CARBON450 M1 PO; +Motrin,Rufen800 MG PO; +Synthroid,Levo25 MCG PO; +Vitamin D PO
== END | disposition home or self-care (01) ==
LOC: LAB 15:52
DX: G30.9 Alzheimer's disease, unspecified (principal)

== ENCOUNTER → 2019-08-01 | Outpatient (CLI) | payer MEDICARE ==
[2019-08-01 12:11] LABS: BUN 11 mg/dl (7-24); CHLORIDE 107 mmol/L (98-107); CREATININE 1.07 mg/dL (0.55-1.02); POTASSIUM 3.7 mmol/L (3.5-5.1); SODIUM 141 mmol/L (136-145)
== END | disposition home or self-care (01) ==
LOC: LAB 11:11
PROVIDERS: Nurse Practitioner
DX: Z51.81 Encounter for therapeutic drug level monitoring (principal)

== ENCOUNTER → 2020-11-01 | Outpatient (CLI) | payer MEDICARE ==
[2020-11-01 10:47] LABS: BASO # 0.1 10*3/uL (0.0-0.1); BASO % 0.8 % (0.0-1.0); EOS # 0.2 10*3/uL (0.0-0.4); EOS % 2.3 % (1.0-4.0); HEMATOCRIT 44.4 % (37.0-47.0); LYMPH # 2.4 10*3/uL (1.3-4.4); LYMPH % 29.7 % (27.0-41.0); MEAN CELL VOLUME 89.2 fl (81.0-99.0); MEAN CORPUSCULAR HGB 27.3 pg (27.0-31.0); MEAN CORPUSCULAR HGB CONC 30.6 g/dl (33.0-37.0); MEAN PLATELET VOLUME 10.3 fl (9.6-12.3); MONO # 0.6 10*3/uL (0.1-1.0); MONO % 7.5 % (3.0-9.0); NEUT # 4.7 10*3/uL (2.3-7.9); NEUT % 59.4 % (47.0-73.0); PLATELET COUNT AUTOMATED 327 10*3/uL (130-400); RED BLOOD COUNT 4.98 10*6/uL (4.10-5.10); RED CELL DISTRI WIDTH 14.9 % (0-14.5); WHITE BLOOD COUNT 7.9 10*3/uL (4.8-10.8)
[2020-11-01 11:37] LABS: ALBUMIN 3.5 gm/dl (3.1-4.5); ALKALINE PHOSPHATASE 91 U/L (45-117); BUN 7 mg/dl (7-24); CHLORIDE 110 mmol/L (98-107); CREATININE 0.89 mg/dL (0.55-1.02); POTASSIUM 4.1 mmol/L (3.5-5.1); SGOT/AST 12 IU/L (3-35); SGPT/ALT 25 U/L (12-78); SODIUM 142 mmol/L (136-145); TOTAL PROTEIN 7.2 gm/dL (6.4-8.2)
== END | disposition home or self-care (01) ==
LOC: LAB 10:23
PROVIDERS: ATTEND Physician Assistant
DX: Z51.81 Encounter for therapeutic drug level monitoring (principal)

== ENCOUNTER → 2021-11-28 | Outpatient (CLI) | payer MEDICARE ==
[~2021-11-28] MED LIST changes: +CYCLOBENZAPRINE10 MG PO
[2021-11-28 11:08] LABS: BASO # 0.1 10*3/uL (0.0-0.1); BASO % 0.6 % (0.0-1.0); EOS # 0.2 10*3/uL (0.0-0.4); EOS % 2.5 % (1.0-4.0); HEMATOCRIT 42.3 % (37.0-47.0); LYMPH # 1.9 10*3/uL (1.3-4.4); MEAN CELL VOLUME 93.8 fl (81.0-99.0); MEAN CORPUSCULAR HGB 29.5 pg (27.0-31.0); MEAN CORPUSCULAR HGB CONC 31.4 g/dl (33.0-37.0); MEAN PLATELET VOLUME 9.9 fl (9.6-12.3); MONO # 0.5 10*3/uL (0.1-1.0); NEUT # 6.1 10*3/uL (2.3-7.9); NEUT % 68.7 % (47.0-73.0); PLATELET COUNT AUTOMATED 274 10*3/uL (130-400); RED BLOOD COUNT 4.51 10*6/uL (4.10-5.10); RED CELL DISTRI WIDTH 13.4 % (0-14.5); WHITE BLOOD COUNT 8.8 10*3/uL (4.8-10.8)
[2021-11-28 11:32] LABS: CREATININE 1.14 mg/dL (0.55-1.02); POTASSIUM 4.3 mmol/L (3.5-5.1); TOTAL PROTEIN 6.8 gm/dL (6.4-8.2)
[2021-11-28 11:38] LABS: THYROID STIM HORMONE (HS) 2.11 uIU/ml (0.358-4.75)
[2021-11-28 12:14] LABS: VITAMIN D, 25-HYDROXY 76.9 ng/mL (30-100)
== END | disposition home or self-care (01) ==
LOC: LAB 10:35
PROVIDERS: ATTEND Physician Assistant
DX: Z51.81 Encounter for therapeutic drug level monitoring (principal); E55.9 Vitamin D deficiency, unspecified; Z79.899 Other long term (current) drug therapy

== ENCOUNTER 2021-12-02 04:49 | Emergency (ER) | payer MEDICARE ==
[~2021-12-02] VITALS: Ht 165.1 cm; Wt 74.8 kg
[~2021-12-02 04:49] MED LIST changes: -CYCLOBENZAPRINE10 MG PO
[2021-12-02 05:00] VITALS: BP 146/68
[2021-12-02] MEDS ORDERED: CYCLOBENZAPRINE10 MG PO (06:02)
== END 2021-12-02 06:14 | disposition home or self-care (01) ==
LOC: ED 04:49
DX: S29.019A Strain of muscle and tendon of unspecified wall of thorax, initial encounter (principal); Z87.891 Personal history of nicotine dependence; Z98.51 Tubal ligation status; K21.9 Gastro-esophageal reflux disease without esophagitis; E11.9 Type 2 diabetes mellitus without complications; Z79.899 Other long term (current) drug therapy; X50.1XXA Overexertion from prolonged static or awkward postures, initial encounter; Y93.89 Activity, other specified; Y92.89 Other specified places as the place of occurrence of the external cause; Y99.8 Other external cause status

== ENCOUNTER 2021-12-06 21:54 | Emergency (ER) | payer OTHER ==
[~2021-12-06 21:54] MED LIST changes: +CYCLOBENZAPRINE10 MG PO
[2021-12-06 23:03] LABS: BILIRUBIN Negative (Negative); BLOOD Negative (Negative); CLARITY Clear (Clear); COLOR Yellow (Yellow); GLUCOSE Negative (Negative); KETONE Negative (Negative); LEUKO ESTERASE Negative (Negative); NITRITE Negative (Negative)
[2021-12-07 03:07] VITALS: BP 156/70
== END 2021-12-07 03:27 | disposition home or self-care (01) ==
LOC: ED 21:54
PROVIDERS: Internal Medicine
DX: R33.9 Retention of urine, unspecified (principal); K59.00 Constipation, unspecified

== ENCOUNTER → 2022-09-01 | Outpatient (CLI) | payer OTHER ==
[2022-09-01 17:25] LABS: BASO # 0.1 10*3/uL (0.0-0.1); BASO % 0.8 % (0.0-1.0); EOS # 0.3 10*3/uL (0.0-0.4); EOS % 2.9 % (1.0-4.0); HEMATOCRIT 45.7 % (37.0-47.0); LYMPH # 2.8 10*3/uL (1.3-4.4); LYMPH % 32.1 % (27.0-41.0); MEAN CELL VOLUME 90.1 fl (81.0-99.0); MEAN CORPUSCULAR HGB 28.8 pg (27.0-31.0); MEAN CORPUSCULAR HGB CONC 31.9 g/dl (33.0-37.0); MEAN PLATELET VOLUME 10.1 fl (9.6-12.3); MONO # 0.6 10*3/uL (0.1-1.0); MONO % 6.8 % (3.0-9.0); NEUT % 57.3 % (47.0-73.0); PLATELET COUNT AUTOMATED 310 10*3/uL (130-400); RED BLOOD COUNT 5.07 10*6/uL (4.10-5.10); RED CELL DISTRI WIDTH 12.9 % (0-14.5); WHITE BLOOD COUNT 8.7 10*3/uL (4.8-10.8)
[2022-09-01 17:43] LABS: ALKALINE PHOSPHATASE 89 U/L (46-116); BUN 9 mg/dl (9-23); CHLORIDE 106 mmol/L (98-107); POTASSIUM 4.3 mmol/L (3.4-5.1); SGPT/ALT 19 U/L (10-49); THYROID STIM HORMONE (HS) 17.442 uIU/ml (0.550-4.780); TOTAL PROTEIN 7.4 gm/dL (6.0-8.0)
[2022-09-01 18:15] LABS: VITAMIN D, 25-HYDROXY 50.4 ng/mL (30-100)
== END | disposition home or self-care (01) ==
LOC: LAB 16:59
PROVIDERS: ATTEND Physician Assistant
DX: Z51.81 Encounter for therapeutic drug level monitoring (principal)

== ENCOUNTER 2022-10-24 11:27 | Inpatient (IN) | payer OTHER ==
[~2022-10-24] VITALS: Ht 266.7 cm; Wt 85.3 kg
[2022-10-24 11:54] VITALS: BP 156/85
[2022-10-24 12:17] LABS: BASO # 0.1 10*3/uL (0.0-0.1); BASO % 0.6 % (0.0-1.0); EOS # 0.2 10*3/uL (0.0-0.4); HEMATOCRIT 48.7 % (37.0-47.0); LYMPH # 2.1 10*3/uL (1.3-4.4); LYMPH % 21.1 % (27.0-41.0); MEAN CELL VOLUME 90.4 fl (81.0-99.0); MEAN CORPUSCULAR HGB 28.8 pg (27.0-31.0); MEAN CORPUSCULAR HGB CONC 31.8 g/dl (33.0-37.0); MONO # 0.7 10*3/uL (0.1-1.0); NEUT # 6.9 10*3/uL (2.3-7.9); NEUT % 69.1 % (47.0-73.0); PLATELET COUNT AUTOMATED 335 10*3/uL (130-400); RED BLOOD COUNT 5.39 10*6/uL (4.10-5.10); RED CELL DISTRI WIDTH 14.4 % (0-14.5)
[2022-10-24 12:28] LABS: ACT PARTIAL THROMBO TIME 25.4 SECONDS (20.0-32.1)
[2022-10-24 12:53] LABS: SALICYLATE (ASA) < 3.0 mg/dl (0.0-29.0)
[2022-10-24 13:01] LABS: ALKALINE PHOSPHATASE 102 U/L (46-116); BUN 9 mg/dl (9-23); CHLORIDE 107 mmol/L (98-107); CPK 201 U/L (34-171); ETHYL ALCOHOL < 3.0 mg/dl (<3); LIPASE 48 U/L (12-53); SGPT/ALT 16 U/L (10-49); TOTAL PROTEIN 7.9 gm/dL (6.0-8.0)
[2022-10-24 13:21] LABS: BILIRUBIN Negative (Negative); BLOOD Negative (Negative); CLARITY Clear (Clear); COLOR Yellow (Yellow); GLUCOSE Negative (Negative); KETONE Trace (Negative); LEUKO ESTERASE Trace (Negative); NITRITE Negative (Negative); UROBILINOGEN 0.2 E.U./dl (0.0-1.0)
[2022-10-24 13:29] LABS: URINE AMPHETAMINES Negative (1000ng/ml); URINE BARBITURATES Negative (200ng/ml); URINE BENZODIAZEPINES Negative (200ng/ml); URINE CANNABINOIDS (THC) Negative (50ng/ml); URINE COCAINE Negative (300ng/ml); URINE METHADONE Negative (300ng/ml); URINE OPIATES Negative (300ng/ml); URINE PHENCYCLIDINE Negative (25ng/ml)
[2022-10-24 13:52] LABS: MUCOUS TRACE; URIC ACID CRYSTALS 4+
[2022-10-24 16:21] VITALS: BP 142/88
[2022-10-24] MEDS ORDERED: ARICEPT10 M1 PO (18:46)
[2022-10-24] MEDS ORDERED: DOXEPIN25 MG PO (18:47)
[2022-10-24] MEDS ORDERED: ESKALITH,LITHI300 MG PO (18:48)
[2022-10-24 20:00] VITALS: BP 114/77
[2022-10-25 07:31] LABS: THYROID STIM HORMONE (HS) 1.251 uIU/ml (0.550-4.780)
[2022-10-25 07:34] VITALS: BP 127/95
[2022-10-25 20:00] VITALS: BP 136/80
[2022-10-26 05:50] LABS: ALKALINE PHOSPHATASE 93 U/L (46-116); BUN 8 mg/dl (9-23); CHLORIDE 107 mmol/L (98-107); SGPT/ALT 14 U/L (10-49); TOTAL PROTEIN 7.1 gm/dL (6.0-8.0)
[2022-10-26 06:10] LABS: BASO # 0.1 10*3/uL (0.0-0.1); BASO % 0.7 % (0.0-1.0); EOS # 0.2 10*3/uL (0.0-0.4); EOS % 2.1 % (1.0-4.0); HEMATOCRIT 46.5 % (37.0-47.0); LYMPH # 2.7 10*3/uL (1.3-4.4); LYMPH % 24.8 % (27.0-41.0); MEAN CELL VOLUME 89.8 fl (81.0-99.0); MEAN CORPUSCULAR HGB 28.6 pg (27.0-31.0); MEAN CORPUSCULAR HGB CONC 31.8 g/dl (33.0-37.0); MEAN PLATELET VOLUME 10.2 fl (9.6-12.3); MONO # 0.7 10*3/uL (0.1-1.0); MONO % 6.5 % (3.0-9.0); NEUT % 65.6 % (47.0-73.0); PLATELET COUNT AUTOMATED 296 10*3/uL (130-400); RED BLOOD COUNT 5.18 10*6/uL (4.10-5.10); RED CELL DISTRI WIDTH 14.3 % (0-14.5); WHITE BLOOD COUNT 10.7 10*3/uL (4.8-10.8)
[2022-10-26 07:35] VITALS: BP 140/93
[2022-10-26 20:00] VITALS: BP 134/83
[2022-10-27 07:24] VITALS: BP 137/85
[2022-10-27 20:00] VITALS: BP 110/56
[2022-10-28 07:31] VITALS: BP 132/81
[2022-10-28 20:00] VITALS: BP 124/64
[2022-10-29 07:18] VITALS: BP 126/61
[2022-10-29 20:00] VITALS: BP 161/89
[2022-10-30 08:25] VITALS: BP 142/72
[2022-10-30 20:00] VITALS: BP 121/60
[2022-10-31 08:00] VITALS: BP 128/62
[2022-10-31] MEDS ORDERED: INVEGA SUSTENN156 MG IM (09:15)
== END 2022-10-31 11:29 | disposition home or self-care (01) | DRG 885 ==
LOC: ED 11:27 → EDHOLD 16:33 → 3N 16:33
PROVIDERS: Emergency Medicine; Internal Medicine; ADMIT Psychiatry & Neurology Psychiatry; ATTEND Psychiatry & Neurology Psychiatry
DX: F25.0 Schizoaffective disorder, bipolar type (principal); K21.9 Gastro-esophageal reflux disease without esophagitis; E53.8 Deficiency of other specified B group vitamins; E55.9 Vitamin D deficiency, unspecified; Z20.822 Contact with and (suspected) exposure to COVID-19; E11.9 Type 2 diabetes mellitus without complications; E03.9 Hypothyroidism, unspecified; Z79.899 Other long term (current) drug therapy; Z98.51 Tubal ligation status; Z87.891 Personal history of nicotine dependence

== ENCOUNTER → 2023-05-29 | Outpatient (CLI) | payer OTHER ==
[~2023-05-29] MED LIST changes: +ARICEPT10 M1 PO; +DOXEPIN25 MG PO; +ESKALITH,LITHI300 MG PO
== END | disposition home or self-care (01) ==
LOC: LAB 11:56
PROVIDERS: ATTEND Physician Assistant
DX: Z51.81 Encounter for therapeutic drug level monitoring (principal)

== ENCOUNTER → 2024-02-02 | Outpatient (CLI) | payer MEDICARE | END | disposition home or self-care (01) | LOC: LAB 11:07 | PROVIDERS: ATTEND Physician Assistant | DX: Z51.81 Encounter for therapeutic drug level monitoring (principal) ==

== ENCOUNTER 2024-10-09 10:07 | Emergency (ER) | payer OTHER, MEDICAID ==
[~2024-10-09] VITALS: Ht 170.1 cm; Wt 99.8 kg
[2024-10-09] MEDS ORDERED: LITHIUM CARBON300 MG PO (10:11)
[2024-10-09] MEDS ORDERED: LITHIUM CARBON150 MG PO (10:11)
[2024-10-09 10:24] VITALS: BP 156/82
[2024-10-09 10:36] LABS: BASO # 0.1 10*3/uL (0.0-0.1); BASO % 0.8 % (0.0-1.0); EOS # 0.2 10*3/uL (0.0-0.4); EOS % 1.9 % (1.0-4.0); HEMATOCRIT 47.5 % (37.0-47.0); MEAN CELL VOLUME 92.6 fl (81.0-99.0); MEAN CORPUSCULAR HGB 29.2 pg (27.0-31.0); MEAN CORPUSCULAR HGB CONC 31.6 g/dl (33.0-37.0); MEAN PLATELET VOLUME 9.4 fl (9.6-12.3); MONO # 0.6 10*3/uL (0.1-1.0); MONO % 8.1 % (3.0-9.0); NEUT # 4.5 10*3/uL (2.3-7.9); NEUT % 58.7 % (47.0-73.0); PLATELET COUNT AUTOMATED 309 10*3/uL (130-400); RED BLOOD COUNT 5.13 10*6/uL (4.10-5.10); RED CELL DISTRI WIDTH 13.2 % (0-14.5); WHITE BLOOD COUNT 7.7 10*3/uL (4.8-10.8)
[2024-10-09 11:01] LABS: BUN 9 mg/dl (9-23); CHLORIDE 103 mmol/L (98-107); ETHYL ALCOHOL < 3.0 mg/dl (<3); POTASSIUM 3.7 mmol/L (3.4-5.1)
[2024-10-09 11:03] LABS: BILIRUBIN Negative (Negative); BLOOD Negative (Negative); CLARITY Clear (Clear); COLOR Yellow (Yellow); GLUCOSE Negative (Negative); KETONE Negative (Negative); LEUKO ESTERASE 1+ (Negative); NITRITE Negative (Negative); PH 7.5 (4.5-8.0); SPECIFIC GRAVITY <= 1.005 (1.001-1.030); UROBILINOGEN 0.2 E.U./dl (0.0-1.0)
[2024-10-09 11:11] LABS: URINE AMPHETAMINES Negative (1000ng/ml); URINE BARBITURATES Negative (200ng/ml); URINE BENZODIAZEPINES Negative (200ng/ml); URINE CANNABINOIDS (THC) Negative (50ng/ml); URINE COCAINE Negative (300ng/ml); URINE METHADONE Negative (300ng/ml); URINE OPIATES Negative (300ng/ml); URINE PHENCYCLIDINE Negative (25ng/ml)
[2024-10-09 11:38] LABS: BACTERIA 2+; RBC 0-2 rbc/hpf (0-2)
[2024-10-09] MEDS ORDERED: Sulfamethoxazole/Trimethopri 1 TAB TAB PO ONE (11:50)
[2024-10-09] MEDS ORDERED: SEPTDS PO (12:19)
== END 2024-10-09 13:25 | disposition home or self-care (01) ==
LOC: ED 10:07
PROVIDERS: Emergency Medicine
DX: N39.0 Urinary tract infection, site not specified (principal); F31.9 Bipolar disorder, unspecified; E11.9 Type 2 diabetes mellitus without complications; F25.9 Schizoaffective disorder, unspecified; I10 Essential (primary) hypertension; E78.5 Hyperlipidemia, unspecified; Z79.899 Other long term (current) drug therapy; Z87.891 Personal history of nicotine dependence

== ENCOUNTER 2025-01-05 13:03 | Emergency (ER) | payer OTHER, MEDICAID ==
[~2025-01-05] VITALS: Ht 165.1 cm; Wt 81.6 kg
[~2025-01-05 13:03] MED LIST changes: +LITHIUM CARBON150 MG PO; +SEPTDS PO
[2025-01-05 13:11] VITALS: BP 148/67
[2025-01-05] MEDS ORDERED: NYSTATIN CREAM15 GM T (13:45)
== END 2025-01-05 14:02 | disposition home or self-care (01) ==
LOC: ED 13:03
DX: B37.2 Candidiasis of skin and nail (principal); Z79.899 Other long term (current) drug therapy; Z87.891 Personal history of nicotine dependence

== ENCOUNTER 2025-02-21 07:20 | Emergency (ER) | payer OTHER, MEDICAID ==
[~2025-02-21] VITALS: Ht 165.1 cm; Wt 81.6 kg
[~2025-02-21 07:20] MED LIST changes: +NYSTATIN CREAM15 GM T
[2025-02-21 07:25] VITALS: BP 150/69
[2025-02-21] MEDS ORDERED: NYSTOP60 GM T (07:29)
== END 2025-02-21 07:50 | disposition home or self-care (01) ==
LOC: ED 07:20
DX: B37.2 Candidiasis of skin and nail (principal); Z79.899 Other long term (current) drug therapy; Z87.891 Personal history of nicotine dependence; Z53.29 Procedure and treatment not carried out because of patient's decision for other reasons